=== PATIENT | male | born 1945 | race Caucasian/White ===

== ENCOUNTER → 2018-03-19 07:30 | Outpatient (CLI) | payer OTHER, SELFPAY ==
[2018-03-19 08:28] LABS: Hemoglobin A1C% w Est Avg Glu 6.3 % (4.0-6.0)
[2018-03-19 08:45] LABS: Alanine Aminotransferase 51 IU/L (21-72); Albumin 4.3 g/dL (3.5-5.0); Albumin Globulin Ratio 1.2 (1.0-2.8); Alkaline Phosphatase 65 U/L (38-126); Aspartate Aminotransferase 40 IU/L (17-59); Bilirubin Total 0.8 mg/dL (0.2-1.3); Blood Urea Nitrogen 15 mg/dL (9-20); Calcium 9.2 mg/dL (8.4-10.2); Carbon Dioxide 28 mmol/L (22-32); Chloride 103 mmol/L (98-107); Cholesterol 139 mg/dL (140-199); Estimated Glomerular Filt Rate 46.1 mL/min (>60); Globulin 3.5 g/dL (1.7-4.1); Glucose 142 mg/dL (80-110); HDL Cholesterol 31 mg/dL (40-60); HEMOLYSIS < 15 (0-50); LDL Cholesterol Calculated 72 mg/dL (<100); Potassium 3.6 mmol/L (3.4-5.1); Sodium 143 mmol/L (137-145); Total Protein 7.8 g/dL (6.3-8.2); Triglycerides 179 mg/dL (35-150)
[2018-03-19 08:59] LABS: Free T4, Direct Thyroxine 1.22 ng/dL (0.78-2.19)
== END ==
PROVIDERS: Family Provider Family Medicine; PCP Family Medicine; Visit Provider Family Medicine
DX: E11.9 Type 2 diabetes mellitus without complications (principal); I10 Essential (primary) hypertension; E78.2 Mixed hyperlipidemia; Z79.4 Long term (current) use of insulin
CPT/HCPCS: 36415; 80053; 80061; 83036; 84439; 84443; 84481

== ENCOUNTER → 2018-05-29 09:15 | Outpatient (CLI) | payer OTHER, SELFPAY ==
[2018-05-29 09:22] LABS: Bacteria Urine None Seen; RBC Urine None Seen (0-5/HPF); WBC Urine None Seen (0-5/HPF)
[2018-05-29 09:48] LABS: Add Manual Diff / Slide Review NO; Basophils Percent Auto 0.7 % (0-2); Eosinophils Percent Auto 4.4 % (2-4); Hematocrit 41.4 % (41-53); Hemoglobin 14.7 g/dL (13.5-17.5); Lymphocytes Percent Auto 32.5 % (25-40); Mean Corpuscular HGB Conc 35.4 % (30-36); Mean Corpuscular Hemoglobin 30.6 PG (26-34); Mean Corpuscular Volume 86.2 fL (80-100); Monocytes Percent Auto 8.4 % (3-14); Neutrophils Absolute Auto 4600 /uL (3000-5900); Platelet Count 197 X10^3/uL (150-400); Red Cell Distribution Width 13.7 % (11.6-14.8); White Blood Cell Count 8.5 X10^3/uL (4.5-11.0)
[2018-05-29 10:04] LABS: Alanine Aminotransferase 52 IU/L (21-72); Albumin 4.4 g/dL (3.5-5.0); Albumin Globulin Ratio 1.3 (1.0-2.8); Alkaline Phosphatase 55 U/L (38-126); Aspartate Aminotransferase 50 IU/L (17-59); BUN Creatinine Ratio 9.3 (6-22); Blood Urea Nitrogen 13 mg/dL (9-20); Calcium 9.3 mg/dL (8.4-10.2); Carbon Dioxide 27 mmol/L (22-32); Chloride 103 mmol/L (98-107); Cholesterol 127 mg/dL (140-199); Globulin 3.4 g/dL (1.7-4.1); Glucose 138 mg/dL (80-110); HDL Cholesterol 36 mg/dL (40-60); HEMOLYSIS 20 (0-50); LDL Cholesterol Calculated 59 mg/dL (<100); Potassium 3.6 mmol/L (3.4-5.1); Sodium 141 mmol/L (137-145); Total Protein 7.8 g/dL (6.3-8.2); Triglycerides 161 mg/dL (35-150)
[2018-05-29 10:25] LABS: Appearance Urine UA CLEAR; Bilirubin Urine UA NEGATIVE (NEGATIVE); Color Urine UA YELLOW; Glucose Urine UA NEGATIVE (Normal); Ketones Urine UA NEGATIVE (NEGATIVE); Leukocyte Esterase Urine UA NEGATIVE (NEGATIVE); Nitrite Urine UA Negative (Negative); Occult Blood Urine UA NEGATIVE (Negative); Protein Urine UA NEGATIVE (Negative); Specific Gravity Urine UA 1.015 (1.000-1.035); Urobilinogen Urine UA 0.2 E.U./dL (0.2); pH Urine UA 6.5 (4.5-8.0)
[2018-05-29 10:37] LABS: Culture Indicated Urine Cult Not Indicated
[2018-05-29 10:50] LABS: Thyroid Stimulating Hormone 3.92 uIU/mL (0.47-4.68)
== END ==
PROVIDERS: PCP Family Medicine; Visit Provider Family Medicine
DX: E11.9 Type 2 diabetes mellitus without complications (principal); Z51.81 Encounter for therapeutic drug level monitoring; Z79.4 Long term (current) use of insulin; Z12.5 Encounter for screening for malignant neoplasm of prostate
CPT/HCPCS: 36415; 80053; 80061; 81001; 84153; 84443; 85025

== ENCOUNTER → 2018-06-21 07:42 | Outpatient (CLI) | payer OTHER, SELFPAY ==
[2018-06-21 09:07] LABS: Alanine Aminotransferase 60 IU/L (21-72); Albumin 4.2 g/dL (3.5-5.0); Albumin Globulin Ratio 1.2 (1.0-2.8); Alkaline Phosphatase 57 U/L (38-126); Aspartate Aminotransferase 67 IU/L (17-59); BUN Creatinine Ratio 11.3 (6-22); Bilirubin Total 0.8 mg/dL (0.2-1.3); Blood Urea Nitrogen 17 mg/dL (9-20); Calcium 9.8 mg/dL (8.4-10.2); Carbon Dioxide 28 mmol/L (22-32); Chloride 104 mmol/L (98-107); Estimated Glomerular Filt Rate 46.1 mL/min (>60); Globulin 3.5 g/dL (1.7-4.1); Glucose 148 mg/dL (80-110); HEMOLYSIS < 15 (0-50); Potassium 3.7 mmol/L (3.4-5.1); Sodium 143 mmol/L (137-145); Total Protein 7.7 g/dL (6.3-8.2)
[2018-06-21 09:21] LABS: Hemoglobin A1C% w Est Avg Glu 6.4 % (4.0-6.0)
== END ==
PROVIDERS: PCP Family Medicine; Visit Provider Family Medicine
DX: E11.9 Type 2 diabetes mellitus without complications (principal); E78.5 Hyperlipidemia, unspecified; I10 Essential (primary) hypertension; Z79.4 Long term (current) use of insulin
CPT/HCPCS: 80053; 83036

== ENCOUNTER 2018-10-08 11:44 | Day surgery (SDC) | payer OTHER, SELFPAY ==
--- NOTE | 2018-10-08 | PATH_ITS ---
[facility] Accession Number: [id number] . 01 Material submitted: . PART A: DUODENAL BIOPSY PART B: ANTRAL BIOPSY PART C: GE JUNCTION BIOPSY . 02 Diagnosis: A. Duodenum, Biopsy: Duodenal mucosa with no diagnostic abnormality. Negative for active inflammation, features of sprue, dysplasia or malignancy. . B. Designated Antrum, Biopsy: Gastric body-type mucosa with no diagnostic abnormality. No evidence of Helicobacter organisms on H/E stain. Negative for intestinal metaplasia, dysplasia or malignancy. . C. Gastroesophageal Junction, Biopsy: Columnar mucosa with no diagnostic abnormality. Negative for specialized intestinal metaplasia, dysplasia or malignancy. [facility]/10/09/2018 . 02 Electronically signed: . Marcel Douglas MD, PhD, Pathologist NPI- [id number] . 01 Gross description: . Received three formalin-filled containers, each labeled with the patient's name: . A. In a container labeled duodenal, the specimen consists of a 0.2 cm portion of tissue, entirely submitted in cassette A. B. In a container labeled antral, the specimen consists of a 0.2 cm portion of tissue, entirely submitted in cassette B. C. In a container labeled GE junction, the specimen consists of two 0.2-0.3 cm portions of tissue, entirely submitted in cassette C. ([id number]) /FRR . 02 Pathologist provided ICD-10: R10.13 . 02 CPT . 302847, 714236, 304880 Performed at: 01 [facility] [address] [address] [place] [id number] MD Bradly Paul MD Phone: [phone] Performed at: [address] [facility] [place] [address] [place] [id number] MD Angelica Loya MD Phone: [phone]
[2018-10-08 12:15] VITALS: BP 158/78; PULSE 60; RESP 15; TEMP 36.3; O2SAT 96
--- NOTE | 2018-10-08 14:10 | PM.PREOP ---
Pre-operative Note Interval Note Pre-op Check: Yes History & Physical Reviewed by Physician Changes: No
[2018-10-08] MEDS: LIDOCAINE 4% SOLN 50 ML 20 ML TOP (14:14)
[2018-10-08] MEDS: TETRACAINE/BENZOCAINE/BUTAMBEN (CETACAINE) BOTTLE 1 SPRAY TOP (14:15)
[2018-10-08] MEDS: fentaNYL 250 MCG/5 ML INJ IV (14:23)
[2018-10-08] MEDS: MIDAZOLAM 5 MG/5 ML VIAL IV (14:23)
--- NOTE | 2018-10-08 14:26 | PM.OP.1 ---
Operative Date/Time/Diagnoses Date of procedure: 10/08/18 Time of procedure: 14:26 Post-op diagnosis: same Procedure & Clinicians Procedure: Esophagogastroduodenoscopy with biopsies Same procedure as scheduled: Yes Indications: Recurrent persistent gastroesophageal reflux disease with last endoscopy in 2000 Surgeon: Lily Diamond Click Yes if Unassisted: Yes Anesthesia Type: Sedation (Versed 4 mg; fentanyl 150 mcg) Operative Notes Findings: 1. Normal duodenum 2. Very mild antral gastritis with a couple of hyperplastic Eladia glands but no true pathology 3. GE junction at 40 cm from the incisors. Tiny sliding hiatal hernia component 4. Incompetent lower esophageal sphincter. 5. Very irregular appearing Z-line with no evidence, visually, of Hall's changes 6. Normal posterior oropharynx. Estimated Blood Loss (mL): 1 Procedure in detail: After obtaining informed consent, the patient was brought to the GI suite and placed in the left lateral decubitus position on the examination table. After placement of appropriate monitors, the patient was given incremental doses of Versed and Fentanyl until an appropriate level of sedation was achieved. A time out was held per SCOAP protocol. A bite block was gently placed between the patient's teeth. The endoscope was lubricated and then passed into the patient's posterior oropharynx. The esophagus was cannulated under direct vision and the scope was passed to the second portion of the duodenum without difficulty. The scope was then withdrawn with careful examination of all areas of the upper GI tract and mucosa. In the stomach, the instrument was retroflexed and the GE junction examined. The scope was straightened and the procedure continued with examination of the remainder of the upper GI tract. Findings are noted above. Air was aspirated from the stomach and the endoscope gently removed from the esophagus. The patient was allowed to awaken from sedation without difficulty and taken to the post-anesthesia care unit in good condition. Total sedation time 12 min Complications: none Condition: stable Disposition: PACU
[2018-10-08 14:30] VITALS: BP 127/75; PULSE 61; RESP 15; TEMP 36.6; O2SAT 90
[2018-10-08 14:35] VITALS: BP 119/76; PULSE 63; RESP 15; O2SAT 91
[2018-10-08 14:40] VITALS: PULSE 63; RESP 17; O2SAT 92
[2018-10-08 14:51] VITALS: BP 127/74; PULSE 67; RESP 16; TEMP 36.2; O2SAT 94
== END 2018-10-08 15:06 | disposition home or self-care (01) ==
PROVIDERS: PCP Family Medicine; Visit Provider Surgery
PROC: 0DJ08ZZ Inspection of Upper Intestinal Tract, Via Natural or Artificial Opening Endoscopic (ICD-10-PCS; CPT 43235; principal; 2018-10-08 13:30)
DX: K29.70 Gastritis, unspecified, without bleeding (principal); K44.9 Diaphragmatic hernia without obstruction or gangrene; N18.9 Chronic kidney disease, unspecified; E11.9 Type 2 diabetes mellitus without complications; E78.5 Hyperlipidemia, unspecified; I10 Essential (primary) hypertension; E03.9 Hypothyroidism, unspecified; G62.9 Polyneuropathy, unspecified; Z86.73 Personal history of transient ischemic attack (TIA), and cerebral infarction without residual deficits
CPT/HCPCS: 43239; 99152; J2250; J3010

== ENCOUNTER → 2019-01-02 09:25 | Outpatient (CLI) | payer OTHER, SELFPAY ==
[2019-01-02 09:50] LABS: Add Manual Diff / Slide Review NO; Basophils Absolute Auto 100 /uL (0-100); Eosinophils Absolute Auto 300 /uL (0-450); Eosinophils Percent Auto 3.7 % (2-4); Hematocrit 42.4 % (41-53); Hemoglobin 14.8 g/dL (13.5-17.5); Lymphocytes Absolute Auto 2700 /uL (1100-4500); Lymphocytes Percent Auto 29.6 % (25-40); Mean Corpuscular HGB Conc 34.9 % (30-36); Mean Corpuscular Hemoglobin 30.3 PG (26-34); Mean Corpuscular Volume 86.9 fL (80-100); Monocytes Absolute Auto 900 /uL (0-900); Monocytes Percent Auto 9.5 % (3-14); Neutrophils Absolute Auto 5200 /uL (1500-7000); Neutrophils Percent Auto 56.2 % (50-75); Platelet Count 205 X10^3/uL (150-400); Red Blood Cell Count 4.88 X10^6/uL (4.5-5.9); Red Cell Distribution Width 13.6 % (11.6-14.8); White Blood Cell Count 9.2 X10^3/uL (4.5-11.0)
[2019-01-02 10:05] LABS: Alanine Aminotransferase 77 IU/L (21-72); Albumin 4.5 g/dL (3.5-5.0); Albumin Globulin Ratio 1.2 (1.0-2.8); Alkaline Phosphatase 58 U/L (38-126); Aspartate Aminotransferase 81 IU/L (17-59); Bilirubin Total 0.8 mg/dL (0.2-1.3); Blood Urea Nitrogen 17 mg/dL (9-20); Calcium 9.9 mg/dL (8.4-10.2); Carbon Dioxide 28 mmol/L (22-32); Chloride 101 mmol/L (98-107); Cholesterol 132 mg/dL (140-199); Estimated Glomerular Filt Rate 39.8 mL/min (>60); Globulin 3.7 g/dL (1.7-4.1); Glucose 168 mg/dL (80-110); HDL Cholesterol 28 mg/dL (40-60); HEMOLYSIS 15 (0-50); LDL Cholesterol Calculated 36 mg/dL (<100); Potassium 3.2 mmol/L (3.4-5.1); Sodium 140 mmol/L (137-145); Total Protein 8.2 g/dL (6.3-8.2); Triglycerides 338 mg/dL (35-150)
[2019-01-02 11:24] LABS: Thyroid Stimulating Hormone 3.65 uIU/mL (0.47-4.68)
== END ==
PROVIDERS: PCP Family Medicine; Visit Provider Family Medicine
DX: E03.9 Hypothyroidism, unspecified (principal); E11.9 Type 2 diabetes mellitus without complications; E78.5 Hyperlipidemia, unspecified; I10 Essential (primary) hypertension; Z51.81 Encounter for therapeutic drug level monitoring; Z79.4 Long term (current) use of insulin
CPT/HCPCS: 36415; 80053; 80061; 84443; 85025

== ENCOUNTER → 2019-01-27 17:10 | Outpatient (CLI) | payer OTHER, SELFPAY ==
[2019-01-27 18:27] LABS: Hemoglobin A1C% w Est Avg Glu 7.3 % (4.0-6.0)
[2019-01-27 18:43] LABS: Alanine Aminotransferase 53 IU/L (21-72); Albumin 4.4 g/dL (3.5-5.0); Albumin Globulin Ratio 1.3 (1.0-2.8); Alkaline Phosphatase 62 U/L (38-126); Aspartate Aminotransferase 50 IU/L (17-59); BUN Creatinine Ratio 8.5 (6-22); Blood Urea Nitrogen 11 mg/dL (9-20); Calcium 8.9 mg/dL (8.4-10.2); Carbon Dioxide 25 mmol/L (22-32); Chloride 104 mmol/L (98-107); Estimated Glomerular Filt Rate 54.3 mL/min (>60); Globulin 3.5 g/dL (1.7-4.1); Glucose 163 mg/dL (80-110); HEMOLYSIS 16 (0-50); Potassium 3.6 mmol/L (3.4-5.1); Sodium 140 mmol/L (137-145); Total Protein 7.9 g/dL (6.3-8.2)
== END ==
PROVIDERS: PCP Family Medicine; Visit Provider Family Medicine
DX: E11.9 Type 2 diabetes mellitus without complications (principal); I10 Essential (primary) hypertension; Z79.4 Long term (current) use of insulin
CPT/HCPCS: 36415; 80053; 83036

== ENCOUNTER → 2019-04-09 09:22 | Outpatient (CLI) | payer OTHER, SELFPAY ==
[2019-04-09 11:07] LABS: Hemoglobin A1C% w Est Avg Glu 6.7 % (4.0-6.0)
== END ==
PROVIDERS: PCP Family Medicine; Visit Provider Family Medicine
DX: E11.9 Type 2 diabetes mellitus without complications (principal); Z79.4 Long term (current) use of insulin
CPT/HCPCS: 36415; 83036

== ENCOUNTER → 2019-07-21 14:50 | Outpatient (CLI) | payer OTHER, SELFPAY ==
--- NOTE | 2019-07-21 | DI.US.S_ITS ---
PROCEDURE: US RENAL COMPLETE INDICATIONS: Chronic kidney disease, unspecified TECHNIQUE: Real-time scanning was performed of the kidneys and bladder, with image documentation. COMPARISON: None. FINDINGS: Kidneys: Kidneys are normal in size. Right kidney measures 10.5 cm long; left kidney measures 10.8 cm long. Right renal cortical thickness is 1.0 cm; left renal cortical thickness is 1.0 cm. Renal cortical echotexture is normal. 8mm nonobstructing inferior pole left renal calcification Bladder: Pre-void bladder volume is 21 mL. Post-void residual is 2 mL. Pre-void images demonstrate no intraluminal masses or stones. On pre-void images, bilateral ureteral jets are noted with color Doppler interrogation. (Of note, ureteral jets may not be detectable in up to 25% of cases due to insufficient differences in specific gravity between ureteral and bladder urine). Miscellaneous: No free pelvic fluid. IMPRESSION: 1. 8mm nonobstructing left renal calcification. Dictated by: Shilo Horton [facility] Interpreted: Mariah Diallo MD on 07/21/2019 at 16:16 Approved by: Mariah Diallo MD, PhD on 07/21/2019 at 16:19
== END ==
PROVIDERS: Family Provider Family Medicine; PCP Family Medicine; Visit Provider Student in an Organized Health Care Education/Training Program
DX: N18.9 Chronic kidney disease, unspecified (principal); N20.0 Calculus of kidney
CPT/HCPCS: 76770

== ENCOUNTER → 2019-09-26 11:26 | Outpatient (CLI) | payer OTHER, SELFPAY ==
[2019-09-26 12:19] LABS: Add Manual Diff / Slide Review NO; Basophils Absolute Auto 100 /uL (0-100); Basophils Percent Auto 0.8 % (0-2); Eosinophils Absolute Auto 400 /uL (0-450); Eosinophils Percent Auto 5.2 % (2-4); Hematocrit 42.5 % (41-53); Hemoglobin 14.9 g/dL (13.5-17.5); Lymphocytes Absolute Auto 2800 /uL (1100-4500); Lymphocytes Percent Auto 35.1 % (25-40); Mean Corpuscular HGB Conc 35.1 % (30-36); Mean Corpuscular Hemoglobin 30.4 PG (26-34); Mean Corpuscular Volume 86.5 fL (80-100); Monocytes Absolute Auto 700 /uL (0-900); Monocytes Percent Auto 8.3 % (3-14); Neutrophils Absolute Auto 4000 /uL (1500-7000); Neutrophils Percent Auto 50.6 % (50-75); Platelet Count 199 X10^3/uL (150-400); Red Blood Cell Count 4.92 X10^6/uL (4.5-5.9); Red Cell Distribution Width 13.8 % (11.6-14.8)
[2019-09-26 12:29] LABS: Hemoglobin A1C% w Est Avg Glu 10.3 % (4.0-6.0)
[2019-09-26 13:47] LABS: Alanine Aminotransferase 51 IU/L (<50); Albumin 4.3 g/dL (3.5-5.0); Albumin Globulin Ratio 1.3 (1.0-2.8); Alkaline Phosphatase 72 U/L (38-126); Aspartate Aminotransferase 66 IU/L (17-59); Bilirubin Total 1.4 mg/dL (0.2-1.3); Blood Urea Nitrogen 19 mg/dL (9-20); Carbon Dioxide 28 mmol/L (22-32); Chloride 99 mmol/L (98-107); Cholesterol 138 mg/dL (140-199); Estimated Glomerular Filt Rate 34.9 mL/min (>60); Globulin 3.2 g/dL (1.7-4.1); Glucose 219 mg/dL (80-110); HDL Cholesterol 29 mg/dL (40-60); HEMOLYSIS < 15 (0-50); LDL Cholesterol Calculated 74 mg/dL (<100); Potassium 4.1 mmol/L (3.4-5.1); Sodium 138 mmol/L (137-145); Total Protein 7.5 g/dL (6.3-8.2); Triglycerides 176 mg/dL (35-150)
[2019-09-26 14:16] LABS: Thyroid Stimulating Hormone 6.61 uIU/mL (0.47-4.68)
== END ==
PROVIDERS: PCP Family Medicine; Visit Provider Family Medicine
DX: E11.9 Type 2 diabetes mellitus without complications (principal); I10 Essential (primary) hypertension; N18.9 Chronic kidney disease, unspecified; Z79.4 Long term (current) use of insulin
CPT/HCPCS: 36415; 80053; 80061; 83036; 84443; 85025

== ENCOUNTER → 2019-12-23 11:03 | Outpatient (CLI) | payer OTHER, SELFPAY ==
[2019-12-23 12:14] LABS: Hemoglobin A1C% w Est Avg Glu 10.6 % (4.0-6.0)
[2019-12-23 12:29] LABS: BUN Creatinine Ratio 8.9 (6-22); Blood Urea Nitrogen 16 mg/dL (9-20); Calcium 12.6 mg/dL (8.4-10.2); Carbon Dioxide 28 mmol/L (22-32); Chloride 100 mmol/L (98-107); Estimated Glomerular Filt Rate 37.2 mL/min (>60); Glucose 197 mg/dL (80-110); HEMOLYSIS < 15 (0-50); Potassium 4.2 mmol/L (3.4-5.1); Sodium 140 mmol/L (137-145)
[2019-12-23 12:35] LABS: Microalbumin Urine Random 4.3 mg/dL (0-1.6)
[2019-12-23 12:40] LABS: Vitamin D 25 Hydroxy (D3) 36.5 ng/mL (30.0-100.0)
[2019-12-23 12:46] LABS: Free T3, Triiodothyronine Free 3.22 pg/mL (2.77-5.27)
== END ==
PROVIDERS: PCP Student in an Organized Health Care Education/Training Program; Referring Provider Student in an Organized Health Care Education/Training Program; Visit Provider Student in an Organized Health Care Education/Training Program
DX: E03.9 Hypothyroidism, unspecified (principal); E11.9 Type 2 diabetes mellitus without complications; I10 Essential (primary) hypertension; N18.9 Chronic kidney disease, unspecified; Z79.4 Long term (current) use of insulin
CPT/HCPCS: 36415; 80048; 82043; 82306; 82570; 83036; 84439; 84443; 84481

== ENCOUNTER → 2020-03-17 12:10 | Outpatient (CLI) | payer OTHER, SELFPAY ==
[2020-03-17 13:30] LABS: Hematocrit 41.7 % (41-53); Hemoglobin 14.8 g/dL (13.5-17.5); Mean Corpuscular HGB Conc 35.4 % (30-36); Mean Corpuscular Hemoglobin 30.8 PG (26-34); Mean Corpuscular Volume 87.1 fL (80-100); Platelet Count 207 X10^3/uL (150-400); Red Blood Cell Count 4.79 X10^6/uL (4.5-5.9); Red Cell Distribution Width 13.8 % (11.6-14.8); White Blood Cell Count 9.6 X10^3/uL (4.5-11.0)
[2020-03-17 13:40] LABS: Creatinine Urine Random 205.3 mg/dL
[2020-03-17 13:42] LABS: BUN Creatinine Ratio 9.1 (6-22); Blood Urea Nitrogen 17 mg/dL (9-20); Calcium 9.8 mg/dL (8.4-10.2); Carbon Dioxide 27 mmol/L (22-32); Chloride 105 mmol/L (98-107); Estimated Glomerular Filt Rate 35.8 mL/min (>60); Glucose 61 mg/dL (80-110); HEMOLYSIS < 15 (0-50); Potassium 3.7 mmol/L (3.4-5.1); Sodium 141 mmol/L (137-145)
[2020-03-17 13:45] LABS: Microalbumi Creatinin Ratio Ur 24.3 ug/mg CR (<30)
[2020-03-17 14:34] LABS: Free T4, Direct Thyroxine 1.01 ng/dL (0.78-2.19)
[2020-03-18 07:08] LABS: Parathyroid Hormone Int 53 pg/mL (15-65)
== END ==
PROVIDERS: PCP Student in an Organized Health Care Education/Training Program; Referring Provider Student in an Organized Health Care Education/Training Program; Visit Provider Student in an Organized Health Care Education/Training Program
DX: E03.9 Hypothyroidism, unspecified (principal); E11.9 Type 2 diabetes mellitus without complications; E83.52 Hypercalcemia; N18.9 Chronic kidney disease, unspecified; N25.0 Renal osteodystrophy; Z79.4 Long term (current) use of insulin
CPT/HCPCS: 36415; 80048; 82043; 82570; 83036; 83970; 84439; 84443; 85027

== ENCOUNTER → 2020-06-22 12:36 | Outpatient (CLI) | payer OTHER, SELFPAY ==
[2020-06-22 13:27] LABS: Hematocrit 42.8 % (41-53); Hemoglobin 14.9 g/dL (13.5-17.5); Mean Corpuscular HGB Conc 34.8 % (30-36); Mean Corpuscular Volume 86.2 fL (80-100); Platelet Count 194 X10^3/uL (150-400); Red Blood Cell Count 4.97 X10^6/uL (4.5-5.9); White Blood Cell Count 7.4 X10^3/uL (4.5-11.0)
[2020-06-22 13:51] LABS: Hemoglobin A1C% w Est Avg Glu 7.3 % (4.0-6.0)
[2020-06-22 14:03] LABS: BUN Creatinine Ratio 9.1 (6-22); Blood Urea Nitrogen 17 mg/dL (9-20); Estimated Glomerular Filt Rate 35.8 mL/min (>60)
[2020-06-22 16:01] LABS: Free T3, Triiodothyronine Free 3.19 pg/mL (2.77-5.27); Free T4, Direct Thyroxine 1.42 ng/dL (0.78-2.19)
[2020-06-22 16:15] LABS: Thyroid Stimulating Hormone 3.79 uIU/mL (0.47-4.68)
== END ==
PROVIDERS: PCP Student in an Organized Health Care Education/Training Program; Referring Provider Student in an Organized Health Care Education/Training Program; Visit Provider Student in an Organized Health Care Education/Training Program
DX: E11.9 Type 2 diabetes mellitus without complications (principal); Z79.4 Long term (current) use of insulin; E03.9 Hypothyroidism, unspecified; I10 Essential (primary) hypertension; N18.9 Chronic kidney disease, unspecified
CPT/HCPCS: 36415; 82565; 83036; 84439; 84443; 84481; 84520; 85027

== ENCOUNTER → 2020-09-14 12:10 | Outpatient (CLI) | payer OTHER, SELFPAY ==
[2020-09-14 13:04] LABS: Blood Urea Nitrogen 18 mg/dL (9-20); Estimated Glomerular Filt Rate 37.1 mL/min (>60)
== END ==
PROVIDERS: PCP Student in an Organized Health Care Education/Training Program; Referring Provider Student in an Organized Health Care Education/Training Program; Visit Provider Student in an Organized Health Care Education/Training Program
DX: E11.9 Type 2 diabetes mellitus without complications (principal); N18.9 Chronic kidney disease, unspecified; Z79.4 Long term (current) use of insulin
CPT/HCPCS: 36415; 82565; 83036; 84520

== ENCOUNTER → 2020-11-04 12:22 | Outpatient (CLI) | payer OTHER, SELFPAY ==
[2020-11-04 12:50] LABS: COVID19 -Nasal RAPID Negative (Negative)
== END ==
PROVIDERS: PCP Student in an Organized Health Care Education/Training Program; Visit Provider Physician Assistant
DX: J98.8 Other specified respiratory disorders (principal); R05 Cough
CPT/HCPCS: 87635

== ENCOUNTER → 2020-12-10 11:09 | Outpatient (CLI) | payer OTHER, SELFPAY ==
[2020-12-10 13:14] LABS: BUN Creatinine Ratio 8.6 (6-22); Blood Urea Nitrogen 15 mg/dL (9-20); Estimated Glomerular Filt Rate 38.3 mL/min (>60)
== END ==
PROVIDERS: PCP Student in an Organized Health Care Education/Training Program; Referring Provider Student in an Organized Health Care Education/Training Program; Visit Provider Student in an Organized Health Care Education/Training Program
DX: E11.9 Type 2 diabetes mellitus without complications (principal); N18.9 Chronic kidney disease, unspecified; Z79.4 Long term (current) use of insulin
CPT/HCPCS: 36415; 82565; 83036; 84520

== ENCOUNTER → 2022-07-26 13:41 | Outpatient (CLI) | payer OTHER, SELFPAY ==
--- NOTE | 2022-07-26 13:44 | DI.US.S_ITS ---
PROCEDURE: US RENAL COMPLETE INDICATIONS: Reassess chronic kidney disease TECHNIQUE: Real-time scanning was performed of the kidneys and bladder, with image documentation. COMPARISON: [facility], US, US RENAL COMPLETE, 07/21/2019, 15:20. FINDINGS: Kidneys: Kidneys are normal in size. Right kidney measures 10.1 cm long; left kidney measures 10.7 cm long. Right renal cortical thickness is 1.2 cm; left renal cortical thickness is 1.8 cm. Renal cortical echotexture is normal. 1 x 0.8 cm shadowing stone is seen in lower pole of left kidney. No hydronephrosis or right-sided nephrolithiasis . No suspicious solid mass lesions. Bladder: Pre-void bladder volume is 30.6 mL. Patient did not void during the study. Pre-void images demonstrate heterogeneous bladder wall. Diffuse bladder wall thickening is seen measures between 6-7.9 mm in thickness. On pre-void images, no ureteral jets are noted with color Doppler interrogation. (Of note, ureteral jets may not be detectable in up to 25% of cases due to insufficient differences in specific gravity between ureteral and bladder urine). Enlarged prostate gland is seen measures 6.8 x 6.8 x 5.2 cm in size with heterogeneous parenchymal echotexture. 1.4 x 1.2 x 1.4 cm hypoechoic solid lesion is seen in right posterior aspect of prostate gland. 0.9 x 0.7 x 0.8 cm hypoechoic lesion is noted in anterior portion of right prostate. No internal vascularity is seen. Miscellaneous: No free pelvic fluid. IMPRESSION: 1. Nonobstructing stone in lower pole of left kidney. No hydronephrosis . 2. Partially distended urinary bladder with questionable diffuse bladder wall thickening, no definite discrete bladder wall mass is seen. 3. Enlarged prostate gland with heterogeneous parenchymal echotexture and suggestion of 2 hypointense lesion involving right prostate gland as above. Malignant process cannot be excluded. Urological correlation is recommended. Dictated by: Gary Porras M.D. on 07/26/2022 at 16:02 Approved by: Gary Porras M.D. on 07/26/2022 at 16:06
== END ==
PROVIDERS: Referring Provider Student in an Organized Health Care Education/Training Program; Visit Provider Student in an Organized Health Care Education/Training Program
DX: N18.31 Chronic kidney disease, stage 3a (principal); N20.0 Calculus of kidney; N40.0 Benign prostatic hyperplasia without lower urinary tract symptoms; N32.89 Other specified disorders of bladder
CPT/HCPCS: 76770

== ENCOUNTER → 2022-09-06 09:02 | Outpatient (CLI) | payer OTHER, SELFPAY ==
[2022-09-06 10:06] LABS: Hemoglobin A1C% w Est Avg Glu 7.3 % (4.0-6.0)
[2022-09-06 10:39] LABS: Prostate Specific Antigen 4.06 ng/mL (0.10-4.00)
[2022-09-06 10:41] LABS: Microalbumi Creatinin Ratio Ur 24.4 ug/mg CR (<30); Microalbumin Urine Random 4.2 mg/dL (0-1.6)
== END ==
PROVIDERS: PCP Student in an Organized Health Care Education/Training Program; Referring Provider Student in an Organized Health Care Education/Training Program; Visit Provider Student in an Organized Health Care Education/Training Program
DX: E11.9 Type 2 diabetes mellitus without complications (principal); Z79.4 Long term (current) use of insulin; N40.2 Nodular prostate without lower urinary tract symptoms; N18.31 Chronic kidney disease, stage 3a
CPT/HCPCS: 36415; 82043; 82570; 83036; 84153

== ENCOUNTER → 2022-10-02 13:39 | Outpatient (CLI) | payer OTHER, SELFPAY ==
[2022-10-02 14:37] LABS: BUN Creatinine Ratio 5.8 (6-22); Blood Urea Nitrogen 11 mg/dL (9-20); Calcium 8.7 mg/dL (8.4-10.2); Carbon Dioxide 26 mmol/L (22-32); Chloride 101 mmol/L (98-107); Estimated Glomerular Filt Rate 36 mL/min (>60); Glucose 122 mg/dL (80-110); HEMOLYSIS < 15 (0-50); Potassium 3.6 mmol/L (3.4-5.1); Sodium 137 mmol/L (137-145)
== END ==
PROVIDERS: PCP Student in an Organized Health Care Education/Training Program; Referring Provider Urology; Visit Provider Urology
DX: N18.9 Chronic kidney disease, unspecified (principal); N40.0 Benign prostatic hyperplasia without lower urinary tract symptoms; N20.0 Calculus of kidney; R31.21 Asymptomatic microscopic hematuria; R97.20 Elevated prostate specific antigen [PSA]; R93.89 Abnormal findings on diagnostic imaging of other specified body structures; Z77.22 Contact with and (suspected) exposure to environmental tobacco smoke (acute) (chronic)
CPT/HCPCS: 36415; 51798; 80048; 81002; 99214

== ENCOUNTER → 2022-11-10 14:33 | Outpatient (CLI) | payer OTHER, SELFPAY ==
--- NOTE | 2022-11-10 | DI.MRI.S_ITS ---
PROCEDURE: MR PELIS WO/W CON INDICATIONS: Elevated prostate specific antigen [PSA] TECHNIQUE: Coronal HASTE, axial T1 FSE with fat saturation, 3-plane nonbreath-hold T2 FSE. After the administration of contrast, dynamic axial, delayed axial and coronal VIBE or 2-D FLASH with fat saturation through the pelvis. Optional diffusion weighted imaging and ADC may be performed. COMPARISON: None. FINDINGS: Image quality: Diffusion weighted and dynamic contrast enhanced images are diagnostic. Prostate: Gland size is 7.8 x 6.6 x 6.2 cm; ellipsoid gland volume is 166 mL. No significant foci of intrinsic T1 hyperintensity to suggest hemorrhage. Multiple BPH nodules. Lesion size(s): Lesion 1: 0.7 x 0.4 cm, (/15) Lesion location(s) (sector): Lesion 1: Left mid gland transitional zone Lesion description: Lesion 1: Oval T2 weighted imaging (T2WI) morphology score: Lesion 1: 3 Diffusion weighted imaging (DWI) morphology score: Lesion 1: 4 Dynamic contrast enhancement (DCE): Lesion 1: Present Lesion PI-RADS score: Lesion 1: PI-RADS 3 Genitourinary system: Bladder has a trabeculated appearance. Distal ureters are non distended. Bowel and peritoneum: No pathologic free pelvic fluid. Inferior colon and small bowel loops are normal in caliber. Diverticulosis. Normal appendix. Nodes and vessels: No pelvic or inguinal adenopathy by size criteria. Iliac vessels are normal in caliber. Soft tissues: No inguinal hernias. Bones: Marrow demonstrates normal overall signal, without lesions to suggest metastases. IMPRESSION: 1. Marked prostatomegaly. Numerous BPH nodules. 2. Left mid gland transitional zone observation measuring 0.5 cm. PI-RADS 3. Favor BPH nodule. 3. No enlarged lymph nodes. Dictated by: Jeremiah Neumann M.D. on 11/10/2022 at 17:25 Approved by: Jeremiah Neumann M.D. on 11/10/2022 at 17:35
== END ==
PROVIDERS: PCP Student in an Organized Health Care Education/Training Program; Referring Provider Urology; Visit Provider Urology
DX: N40.2 Nodular prostate without lower urinary tract symptoms (principal); R97.20 Elevated prostate specific antigen [PSA]
CPT/HCPCS: 72197; A9579

== ENCOUNTER → 2022-11-28 12:01 | Outpatient (CLI) | payer OTHER, SELFPAY ==
[2022-11-28 12:57] LABS: Estimated Glomerular Filt Rate 39 mL/min (>60)
--- NOTE | 2022-11-28 13:28 | DI.CT.S_ITS ---
PROCEDURE: CT ABDOMEN PELVIS WO/W CON INDICATIONS: Microscopic hematuria, kidney stone TECHNIQUE: Optional 5 mm thick noncontrast images acquired from the diaphragm to the symphysis pubis. After the administration of intravenous contrast, 5 mm thick images acquired from the diaphragm to the symphysis pubis after a 10-minute delay. 2 mm thick coronal and sagittal reformats were then performed of the kidneys and ureters. For radiation dose reduction, the following was used: automated exposure control, adjustment of mA and/or kV according to patient size. COMPARISON: None. FINDINGS: Image quality: Excellent. Lung bases: Lung bases are clear. Heart size is normal. Urinary system: Both kidneys are normal in size, without hydronephrosis on pre-contrast images. There are 2 stones in close proximity to each other in a single posterior left middle pole calyx, the larger of which measures 9 x 8 mm. It has a Hounsfield measurement of 1221. No perinephric fat stranding. There is normal bilateral renal enhancement. Renal calyces appear normal in morphology when filled with contrast. Opacified portions of both ureters demonstrate normal caliber. Marked enlargement of the prostate which significantly indents on the base of the bladder. There is mild diffuse bladder wall thickening consistent with bladder outlet obstruction. No calcified bladder stones. Other solid organs: Liver is normal in size and enhancement mild diffuse hepatic steatosis. Gallbladder contains multiple calcified gallstones. No gallbladder wall thickening . Biliary system is non dilated. Pancreas enhances normally. Spleen is normal in size and enhancement. No adrenal nodules. Peritoneum and bowel: Bowel loops demonstrate normal wall thickness and caliber. At least moderate diffuse sigmoid diverticulosis without evidence of diverticulitis. No free fluid or air. Nodes and vessels: No retroperitoneal or mesenteric adenopathy by size criteria. Aorta and inferior vena cava are normal in size. Abdominal wall: No ventral hernias. Pelvis: No pathologic free pelvic fluid. No inguinal hernias or adenopathy. Bones: No suspicious bony lesions. No vertebral body compression fractures. IMPRESSION: 1. There are 2 nonobstructing stones in the middle pole of the left kidney, the larger of which measures 9 x 8 mm, and has a Hounsfield measurement of 1221. 2. Marked enlargement of the prostate. 3. Bladder wall thickening suggests a degree of bladder outlet obstruction. Dictated by: Cornell Carreno M.D. on 11/28/2022 at 16:26 Approved by: Cornell Carreno M.D. on 11/28/2022 at 16:31
== END ==
PROVIDERS: PCP Student in an Organized Health Care Education/Training Program; Referring Provider Specialist; Visit Provider Student in an Organized Health Care Education/Training Program
DX: R31.29 Other microscopic hematuria (principal); N20.0 Calculus of kidney; N40.0 Benign prostatic hyperplasia without lower urinary tract symptoms; K76.0 Fatty (change of) liver, not elsewhere classified; K80.20 Calculus of gallbladder without cholecystitis without obstruction; K57.30 Diverticulosis of large intestine without perforation or abscess without bleeding
CPT/HCPCS: 36415; 74178; 82565; Q9967

== ENCOUNTER → 2022-12-04 13:52 | Outpatient (CLI) | payer OTHER, SELFPAY ==
--- NOTE | 2022-12-04 13:54 | DI.RAD.S_ITS ---
PROCEDURE: XR KUB INDICATIONS: Left kidney stone TECHNIQUE: One view of the abdomen acquired. COMPARISON: [facility], CT, CT ABDOMEN PELVIS WO/W CON, 11/28/2022, 13:35. FINDINGS: Surgical changes and devices: None. Bowel: Bowel gas pattern is normal. Soft tissues: 8 mm calcification projects over the lower pole left kidney. Fecal debris present in the right colon. Bones: No suspicious bony lesions. IMPRESSION: 8 mm left renal calculus Approved by: Trell Ace M.D. on 12/04/2022 at 16:22
== END ==
PROVIDERS: PCP Student in an Organized Health Care Education/Training Program; Referring Provider Urology; Visit Provider Urology
DX: N20.0 Calculus of kidney (principal); R97.20 Elevated prostate specific antigen [PSA]; R93.89 Abnormal findings on diagnostic imaging of other specified body structures; N40.0 Benign prostatic hyperplasia without lower urinary tract symptoms; N39.41 Urge incontinence; Z77.22 Contact with and (suspected) exposure to environmental tobacco smoke (acute) (chronic)
CPT/HCPCS: 74018; 99214

== ENCOUNTER 2022-12-26 11:15 | Day surgery (SDC) | payer OTHER, SELFPAY ==
[2022-12-22 11:31] VITALS: BMI 31.9
[2022-12-26] VITALS (14 sets, daily range): BP systolic 179–208; BP diastolic 79–100; PULSE 63–81; RESP 8–17; TEMP 36.4–36.8; O2SAT 92–96; BMI 31.9
[2022-12-26] MEDS: LACTATED RINGERS 1,000 ML 42 ML IV (11:54)
--- NOTE | 2022-12-26 12:04 | PM.PREOP ---
Pre-operative Note COVID-19 COVID-19 status: Not tested Criteria for continued procedure: Delay expected to result in less-positive ultimate med/surg outcome and Non-surgical alternatives not available or appropriate per current SOC Interval Note History & Physical reviewed/Exam performed by Physician: Yes Changes to H&P: No
[2022-12-26] MEDS: CEFAZOLIN 2 GM/100 ML PREMIX 100 ML IV (12:35)
--- NOTE | 2022-12-26 12:46 | SUR.OPER ---
Lithotomy on padded OR bed, head on pillow, arms padded and tucked . Legs secured in leg holders specific for ESWL bed
[2022-12-26] MEDS: IOPAMIDOL 30 ML VIAL 10 ML INTRAURETH (13:04)
--- NOTE | 2022-12-26 13:33 | P.OP_ITS ---
Procedure & Clinicians Procedure: Left extracorporeal shockwave lithotripsy, cystoscopy and left stent placement, left retrograde pyelogram Same procedure as scheduled: Yes Indications: This 77-year-old male who presented with complaint of hematuria was found to maldonado ve a left renal calculus during the workup for this. He presents this time for treatment of this left ureteral calculus.. Surgeon: Krishna Clinton Click Yes if Unassisted: Yes Anesthesia Type: General Operative Notes Findings: Findings: At cystoscopy urethral meatus was normal urethra was normal. The prostate exhibits moderate approaching severe obstructive character with elevated bladder neck and or median lobe. The right ureteral orifices in normal position with clear efflux. The bladder is otherwise unremarkable. Add attempt at placing the stent on the left the patient was noted to have significant ?J hooking? of the distal ureter. This necessitated retrograde pyelogram which revealed the J hooking. And facilitated passage of a wire and Ashland catheter up it into the collecting system. There were no other abnormalities noted. The stone was noted to be in the left mid kidney consistent with the findings of his KUB and CT scan. There were no filling defects or other abnormalities. The stone received a total of 2000 shocks at level 7 and appeared to fragment well. A 7 Portuguese multilink stent was left in good position in the left collecting system with no string. Closure Type: not applicable Specimen(s): none sent Prosthetic devices, grafts, tissues, transplants, or devices: Seven Portuguese by multi length stent no string Blood products transfused: none Procedure in detail: Procedure in detail: After informed consent was obtained, the patient was identified and brought to the operating room where he was placed in supine position on the Lithotripter. He then had anesthesia induced to maintain. Ensuring an adequate level of anesthesia patient was then transitioned to the lithotomy position. Once the lithotomy position he was prepped, draped, prepared for Transurethral procedure. After prepping draping, time-out and ensuring an adequate level of anesthesia 22 Portuguese cystoscope was passed through the urethra prostate and into the bladder under direct vision cystoscopy was performed. The left ureteral orifice was identified and attempt to pass a hybrid wire met with difficulty. This was then assisted by a Ashland catheter and again difficulty was met so the Cantu catheter was left in place with a wire backed out and contrast instilled and visualized via fluoroscopy. With the findings and had glidewire was then employed passed up it into the collecting system the distal ureter appeared to ?straightened? and the Cantu catheter was passed up into the collecting system where the contrast was irrigated out with saline and aspiration. The hybrid wire was then passed through the Ashland catheter the Cantu catheter was basket out and the stent passed over the wire positioned in the renal pelvis under fluoroscopic visualization of the bladder under direct vision. The grasping forceps was then inserted and the stent grasped with a nylon heart is removed. The bladder was drained scope was removed and the patient went on to extracorporeal shockwave lithotripsy. The stone was targeted via the imaging system and shockwave delivered vaginally reaching level 7 for a total of 2000 shocks. There was periodic reimaging and re localization to ensure maximal energy delivery to the stone with 2000 shocks delivered the shockwave head was rotated out fluoroscopy performed revealing the stone to be well fragmented. At this point the patient was awakened having tolerated the procedure well he was transferred to a gurney and taken to the postanesthesia care unit having tolerated the procedure well. There were no complications patient will be transferred to home to follow up my office in approximately 2 weeks. He will strain his urine and save any fragments. Complications: none Post-operative Condition: stable Disposition: PACU Plan for aftercare: Patient is to be discharged to home straining his urine saving any fragments he will return to my office in approximately 2 weeks with a KUB for follow-up.
[2022-12-26] MEDS: METOPROLOL TARTRATE 5 MG/5 ML INJ IV (13:41)
[2022-12-26] MEDS: AMLODIPINE 5 MG TABLET 10 MG PO (13:58)
--- NOTE | 2022-12-26 14:00 | SUR.PHASEI ---
Patient denied chest pain, nausea, shortness of breath, headache.
[2022-12-26] MEDS: ONDANSETRON 4 MG/2 ML INJ IV (14:19)
--- NOTE | 2022-12-26 14:27 | SUR.PHASEII ---
Patient stood at bedside to void and vomited 200mls. Zofran provided.
[2022-12-26] MEDS: LABETALOL 20 MG/4 ML SYRINGE 10 MG IV (14:42)
--- NOTE | 2022-12-26 14:52 | SUR.PHASEII ---
Urine strained x2, no fragments noted.
--- NOTE | 2022-12-26 15:15 | SUR.PHASEII ---
Dr. Angeles evaluated patient. Patient to take his po isosorbide, then may discharge home per MD.
[2022-12-26] MEDS: ISOSORBIDE MONONITRATE 20 MG TABLET PO (15:25)
--- NOTE | 2022-12-26 15:41 | SUR.PHASEII ---
1525 BP discussed with pt and Dr. Angeles prior to discharge, pt amb ind with steady gait denies nausea/headache/dizziness or other sx, states I feel fine
== END 2022-12-26 15:36 | disposition home or self-care (01) ==
PROVIDERS: PCP Student in an Organized Health Care Education/Training Program; Referring Provider Urology; Visit Provider Urology
PROC: (CPT 50590; principal; 2022-12-26 12:30)
PROC: (CPT 50590; 2022-12-26 12:30)
DX: N20.0 Calculus of kidney (principal); R97.20 Elevated prostate specific antigen [PSA]; N40.0 Benign prostatic hyperplasia without lower urinary tract symptoms; N39.41 Urge incontinence
CPT/HCPCS: 50590; 52332; J0330; J0690; J2405; J2704; J3010; Q9967

== ENCOUNTER → 2023-01-04 12:47 | Outpatient (CLI) | payer OTHER, SELFPAY ==
--- NOTE | 2023-01-04 12:50 | DI.RAD.S_ITS ---
PROCEDURE: XR KUB INDICATIONS: renal stones TECHNIQUE: One view of the abdomen acquired. COMPARISON: [facility], CR, XR KUB, 12/04/2022, 13:57. FINDINGS: Surgical changes and devices: There is a left ureteral stent in expected position. Multiple left renal calculi are present. The dominant stone in the inferior pole is no longer visualized. No definitive right renal stone. Bowel: Bowel gas pattern is normal. Soft tissues: No suspicious abdominal calcifications. Visualized solid organ contours appear normal in size. Bones: No suspicious bony lesions. IMPRESSION: 1. Multiple left renal calculi. The dominant stone in the inferior pole of the left kidney is no longer present. There is a left ureteral stent. Dictated by: Meng Luo M.D. on 01/04/2023 at 17:18 Approved by: Meng Luo M.D. on 01/04/2023 at 17:20
== END ==
PROVIDERS: PCP Student in an Organized Health Care Education/Training Program; Referring Provider Urology; Visit Provider Urology
DX: N20.0 Calculus of kidney (principal); Z96.0 Presence of urogenital implants
CPT/HCPCS: 74018

== ENCOUNTER → 2023-01-08 15:23 | Outpatient (CLI) | payer OTHER, SELFPAY | PROVIDERS: PCP Student in an Organized Health Care Education/Training Program; Visit Provider Urology | DX: N39.0 Urinary tract infection, site not specified (principal); N20.0 Calculus of kidney; N40.0 Benign prostatic hyperplasia without lower urinary tract symptoms; Z96.0 Presence of urogenital implants | CPT/HCPCS: 81002; 87086 ==

== ENCOUNTER → 2023-01-24 08:34 | Outpatient (CLI) | payer OTHER, SELFPAY ==
--- NOTE | 2023-01-24 08:36 | DI.RAD.S_ITS ---
PROCEDURE: XR KUB INDICATIONS: Kidney stone TECHNIQUE: One view of the abdomen acquired. COMPARISON: [facility], CT, CT ABDOMEN PELVIS WO/W CON, 11/28/2022, 13:35. [facility], CR, XR KUB, 01/04/2023, 12:50. [facility], CR, XR KUB, 12/04/2022, 13:57. FINDINGS: Surgical changes and devices: Stable appearance of a left ureteral stent. Bowel: Bowel gas pattern is normal. Soft tissues: Previously seen left renal calculi appear less prominent, although residual small calculi are suspected. No calculus is seen along the course of the left ureter. Visualized solid organ contours appear normal in size. Bones: No suspicious bony lesions. IMPRESSION: Stable left ureteral stent. Left renal calculi appear less prominent. Approved by: Edwin Gonzalez M.D. on 01/24/2023 at 12:14
== END ==
PROVIDERS: PCP Student in an Organized Health Care Education/Training Program; Referring Provider Urology; Visit Provider Urology
DX: N20.0 Calculus of kidney (principal); Z96.0 Presence of urogenital implants
CPT/HCPCS: 74018

== ENCOUNTER → 2023-02-08 10:35 | Outpatient (CLI) | payer OTHER, SELFPAY ==
--- NOTE | 2023-02-08 10:36 | DI.RAD.S_ITS ---
PROCEDURE: XR KUB INDICATIONS: kidney stones TECHNIQUE: One view of the abdomen acquired. COMPARISON: [facility], CR, XR KUB, 01/24/2023, 8:33. FINDINGS: Surgical changes and devices: Left double-J stent Bowel: Bowel gas pattern is normal. Soft tissues: No suspicious abdominal calcifications. Faint small lower pole left renal stones. Visualized solid organ contours appear normal in size. Bones: No suspicious bony lesions. IMPRESSION: Unchanged course of left ureteral stent. Faint small left lower pole renal stones. Dictated by: Cornell Carreno M.D. on 02/08/2023 at 16:04 Approved by: Cornell Carreno M.D. on 02/08/2023 at 16:05
== END ==
PROVIDERS: PCP Student in an Organized Health Care Education/Training Program; Referring Provider Urology; Visit Provider Urology
DX: N20.0 Calculus of kidney (principal); Z96.0 Presence of urogenital implants
CPT/HCPCS: 74018

== ENCOUNTER → 2023-02-08 13:35 | Outpatient (CLI) | payer OTHER, SELFPAY ==
--- NOTE | 2023-02-08 13:36 | DI.ECHO.S_ITS ---
[facility]+ [facility] +---------+ : : [address] : : : : [id number] : : : : Phone: [phone]+ Echocardiogram Report + + :Name: SURINDER NERI Study Date: 02/08/2023 Height: 67 in : :[facility] ReadingLocation: Weight: 200 lb : : Gender: Male BSA: 2.0 m2 : :: 1945 Age: 77 yrs BP: 183/75 mmHg: :Reason For Study: SYNCOPE : :Ordering Physician: SAM, : :DALILA Performed By: Nayla Arciniega : :Referring: DALILA VARGAS : + + Interpretation Summary Normal sinus rhythm and uncontrolled hypertension. Normal LV size and mild concentric LVH. There is subtle mid-inferoseptal, distal septal and mid-inferior hypokinesis which in the right clinical setting could be due to conduction system disease or small area of ischemia or infarction. Normal wall motion otherwise. EF is 60-65%. Normal chamber sizes. Mild AI; otherwise no significant valvular abnormalities. No prior study available for comparison. Procedure: A two-dimensional transthoracic echocardiogram with color flow and Doppler was performed. The study quality was technically adequate. There is no prior echocardiogram noted for this patient. The patient was in sinus rhythm with heart rates between 58-69 bpm during the exam. Left Ventricle: The left ventricle is normal in size. There is mild concentric left ventricular hypertrophy. The ejection fraction is estimated to be 55-60%. Right Ventricle: The right ventricle is borderline dilated. The right ventricular systolic function is normal. Atria: The left atrial size is normal. Right atrial size is normal. There is no Doppler evidence for an interatrial shunt. Mitral Valve: The mitral valve is normal in structure and function. There is trace mitral regurgitation. Aortic Valve: The aortic valve is trileaflet. There is no aortic valve stenosis. There is mild aortic regurgitation. Tricuspid Valve: The tricuspid valve is normal in structure and function. There is trace tricuspid regurgitation. Pulmonic Valve: The pulmonic valve leaflets are thin and pliable; valve motion is normal. There is mild pulmonic regurgitation. Great Vessels: The aortic root is normal size. The dimensions of the ascending aorta are normal. The IVC is of normal diameter and collapses greater than 50% with a sniff. This suggests a low right atrial pressure of 3 mm Hg. Pericardium/ Pleura There is no pericardial effusion. There is no pleural effusion. MMode/2D Measurements & Calculations LVIDd: 4.4 cm LVOT diam: 2.2 cm LVIDs: 3.0 cm Ao root diam: 3.8 cm FS: 32.5 % asc Aorta Diam: 3.4 cm EPSS: 1.5 cm Ao Arch Diam (Prox Trans): 2.9 cm IVSd: 1.2 cm LVPWd: 1.1 cm LV vincent. diameter/BSA (cm/m^2): 2.2 LV sys. diameter/BSA (cm/m^2): 1.5 LA A2 area: 25.6 cm2 RA long axis: 4.6 cm LA A4 area: 13.9 cm2 RA area: 15.4 cm2 LA length (vol): 4.8 cm RA vol: 44.1 ml LA vol: 63.2 ml RA : 21.8 ml/m2 LA vol index: 31.2 ml/m2 IVC diam: 1.3 cm RVD1 (basal): 4.2 cm RVD2 (mid): 2.9 cm TAPSE: 2.5 cm Doppler Measurements & Calculations Ao V2 max: 138.3 cm/sec LVOT Max Ceasar: 114.8 cm/sec Ao V2 mean: 93.4 cm/sec LV V1 max P.3 mmHg Ao max P.6 mmHg LV V1 VTI: 24.9 cm Ao mean P.9 mmHg SHALOM(I,D): 3.1 cm2 Ao V2 VTI: 30.6 cm SHALOM(V,D): 3.2 cm2 sev ratio: 0.81 SHALOM indexed to BSA (cm^2/m^2): 1.6 AI P1/2t: 590.0 msec AI dec slope: 180.9 cm/sec2 MV E max ceasar: 62.1 cm/sec PA V2 max: 73.1 cm/sec MV A max ceasar: 73.1 cm/sec PA V2 mean: 50.5 cm/sec MV E/A: 0.85 PA mean P.2 mmHg Med Peak E' Ceasar: 4.2 cm/sec PA pr(Accel): 36.2 mmHg E/E' med: 14.9 Lat Peak E' Ceasar: 4.8 cm/sec E/E' lat: 13.0 E/e' average: 14.0 MV dec time: 0.21 sec SVLVOT): 95.9 ml Electronically signed by: Ave Dawson M.D. on [place] Physician:02/09/2023 01:36 AM
== END ==
PROVIDERS: PCP Student in an Organized Health Care Education/Training Program; Referring Provider Student in an Organized Health Care Education/Training Program; Visit Provider Student in an Organized Health Care Education/Training Program
DX: I35.1 Nonrheumatic aortic (valve) insufficiency (principal); I37.1 Nonrheumatic pulmonary valve insufficiency; R55 Syncope and collapse; N20.0 Calculus of kidney; Z96.0 Presence of urogenital implants
CPT/HCPCS: 74018; 93306

== ENCOUNTER → 2023-02-19 12:41 | Outpatient (CLI) | payer OTHER, SELFPAY ==
--- NOTE | 2023-02-19 12:43 | DI.RAD.S_ITS ---
PROCEDURE: XR KUB INDICATIONS: Kidney stone TECHNIQUE: One view of the abdomen acquired. COMPARISON: [facility], , XR KUB, 02/08/2023, 10:46. FINDINGS: Surgical changes and devices: Left ureteral stent is unchanged in position. Bowel: Bowel gas pattern is normal. Soft tissues: Previously seen left inferior pole renal calculi are not well seen. Visualized solid organ contours appear normal in size. Bones: No suspicious bony lesions. IMPRESSION: Nonvisualization of previously seen left renal calculi. CT KUB could be performed for further assessment, if clinically indicated. Dictated by: Stephanie Melgar M.D. on 02/19/2023 at 13:50 Transcribed by: GAMALIEL on 02/19/2023 at 13:51 Approved by: Stephanie Melgar M.D. on 02/19/2023 at 16:44
[2023-02-19 14:27] LABS: Appearance Urine UA CLEAR; Bilirubin Urine UA NEGATIVE (NEGATIVE); Color Urine UA YELLOW; Glucose Urine UA TRACE g/dL (Negative); Ketones Urine UA NEGATIVE (NEGATIVE); Leukocyte Esterase Urine UA TRACE (NEGATIVE); Nitrite Urine UA NEGATIVE (Negative); Occult Blood Urine UA 3+ (Negative); Protein Urine UA 2+ (Negative); Urobilinogen Urine UA 0.2 E.U./dL (0.2); pH Urine UA 6.5 (4.5-8.0)
[2023-02-19 14:35] LABS: BUN Creatinine Ratio 7.9 (6-22); Blood Urea Nitrogen 16 mg/dL (9-20); Calcium 8.9 mg/dL (8.4-10.2); Carbon Dioxide 27 mmol/L (22-32); Chloride 101 mmol/L (98-107); Cholesterol 149 mg/dL (140-199); Estimated Glomerular Filt Rate 33 mL/min (>60); Glucose 289 mg/dL (80-110); HDL Cholesterol 30 mg/dL (40-60); HEMOLYSIS < 15 (0-50); LDL Cholesterol Calculated 84 mg/dL (<100); Potassium 4.1 mmol/L (3.4-5.1); Sodium 138 mmol/L (137-145); Triglycerides 176 mg/dL (35-150)
[2023-02-19 14:53] LABS: Bacteria Urine None Seen; Culture Indicated Urine Cult Not Indicated; RBC Urine >100/HPF (0-5/HPF); Squamous Epithelial Cell Urine 0-1 /HPF (0-5/HPF); WBC Urine 1-5/HPF (0-5/HPF)
[2023-02-20 08:07] LABS: Labcorp Hemoglobin (Hb) A1c 7.5 % (4.8-5.6)
[2023-02-21 07:48] LABS: PSA Free % 40.2 % (.); PSA, Total 4.1 ng/mL (0.0-4.0)
== END ==
PROVIDERS: PCP Student in an Organized Health Care Education/Training Program; Referring Provider Urology; Visit Provider Urology
DX: I10 Essential (primary) hypertension (principal); E11.69 Type 2 diabetes mellitus with other specified complication; E78.5 Hyperlipidemia, unspecified; E11.9 Type 2 diabetes mellitus without complications; Z79.4 Long term (current) use of insulin; R97.20 Elevated prostate specific antigen [PSA]; N18.31 Chronic kidney disease, stage 3a; N39.41 Urge incontinence; R31.21 Asymptomatic microscopic hematuria
CPT/HCPCS: 36415; 74018; 80048; 80061; 81001; 83036; 84153; 84154

== ENCOUNTER → 2023-02-21 13:28 | Outpatient (CLI) | payer OTHER, SELFPAY | PROVIDERS: PCP Student in an Organized Health Care Education/Training Program; Referring Provider Student in an Organized Health Care Education/Training Program; Visit Provider Student in an Organized Health Care Education/Training Program | DX: R55 Syncope and collapse (principal) | CPT/HCPCS: 93246 ==

== ENCOUNTER → 2023-02-23 13:47 | Outpatient (CLI) | payer OTHER, SELFPAY | PROVIDERS: PCP Student in an Organized Health Care Education/Training Program; Visit Provider Urology | DX: N20.0 Calculus of kidney (principal); N39.41 Urge incontinence; R31.21 Asymptomatic microscopic hematuria; Z77.22 Contact with and (suspected) exposure to environmental tobacco smoke (acute) (chronic); Z96.0 Presence of urogenital implants | CPT/HCPCS: 87086; 99213 ==

== ENCOUNTER → 2023-02-27 11:10 | Outpatient (CLI) | payer OTHER, SELFPAY ==
[2023-03-05 16:20] LABS: Hydroxyapatite 100 % (.)
== END ==
PROVIDERS: PCP Student in an Organized Health Care Education/Training Program; Visit Provider Urology
DX: N20.0 Calculus of kidney (principal); N39.41 Urge incontinence
CPT/HCPCS: 52310; 81002; 82365

== ENCOUNTER → 2023-03-07 15:15 | Outpatient (CLI) | payer OTHER, SELFPAY | PROVIDERS: PCP Student in an Organized Health Care Education/Training Program; Visit Provider Urology | DX: N20.0 Calculus of kidney (principal); N39.41 Urge incontinence; N40.0 Benign prostatic hyperplasia without lower urinary tract symptoms; R31.21 Asymptomatic microscopic hematuria; R97.20 Elevated prostate specific antigen [PSA]; R82.81 Pyuria; R30.0 Dysuria; R35.0 Frequency of micturition; N20.9 Urinary calculus, unspecified | CPT/HCPCS: 51798; 81002; 87077; 87086; 87147; 87186; 99214 ==

== ENCOUNTER → 2023-03-28 13:57 | Outpatient (CLI) | payer OTHER, SELFPAY | PROVIDERS: PCP Student in an Organized Health Care Education/Training Program; Visit Provider Urology | DX: N30.01 Acute cystitis with hematuria (principal); N20.0 Calculus of kidney; N40.0 Benign prostatic hyperplasia without lower urinary tract symptoms; N39.41 Urge incontinence; R97.20 Elevated prostate specific antigen [PSA]; Z77.22 Contact with and (suspected) exposure to environmental tobacco smoke (acute) (chronic) | CPT/HCPCS: 81002; 87086; 99214 ==

== ENCOUNTER → 2023-05-10 11:14 | Outpatient (CLI) | payer OTHER, SELFPAY ==
[2023-05-10 13:43] LABS: Blood Urea Nitrogen 16 mg/dL (9-20); Calcium 9.1 mg/dL (8.4-10.2); Carbon Dioxide 28 mmol/L (22-32); Chloride 102 mmol/L (98-107); Estimated Glomerular Filt Rate 34 mL/min (>60); Glucose 117 mg/dL (80-110); HEMOLYSIS < 15 (0-50); Potassium 3.6 mmol/L (3.4-5.1); Sodium 139 mmol/L (137-145)
[2023-05-11 09:17] LABS: x Labcorp Estim. Avg Glu (eAG) 157 mg/dL (.); x Labcorp Hemoglobin A1c 7.1 % (4.8-5.6)
== END ==
PROVIDERS: PCP Pediatrics; Referring Provider Pediatrics; Visit Provider Pediatrics
DX: E03.9 Hypothyroidism, unspecified (principal); E11.69 Type 2 diabetes mellitus with other specified complication; E11.9 Type 2 diabetes mellitus without complications; E78.5 Hyperlipidemia, unspecified; I10 Essential (primary) hypertension; N18.9 Chronic kidney disease, unspecified; Z79.4 Long term (current) use of insulin
CPT/HCPCS: 36415; 80048; 83036; 84443

== ENCOUNTER → 2023-05-24 15:32 | Outpatient (CLI) | payer OTHER, SELFPAY | PROVIDERS: PCP Pediatrics; Visit Provider Urology | DX: N20.0 Calculus of kidney (principal); N39.41 Urge incontinence; R31.21 Asymptomatic microscopic hematuria; N20.9 Urinary calculus, unspecified; N40.0 Benign prostatic hyperplasia without lower urinary tract symptoms; N18.31 Chronic kidney disease, stage 3a; R82.81 Pyuria; R34 Anuria and oliguria; R82.991 Hypocitraturia | CPT/HCPCS: 81002; 87086; 99214 ==

== ENCOUNTER → 2023-10-08 10:34 | Outpatient (CLI) | payer OTHER, SELFPAY ==
[2023-10-08 12:15] LABS: Calcium 9.7 mg/dL (8.4-10.2); Phosphorous 3.1 mg/dL (2.3-3.7); Uric Acid 5.8 mg/dL (3.5-8.5)
[2023-10-08 21:12] LABS: Prostate Specific Antigen 6.69 ng/mL (0.10-4.00)
[2023-10-10 15:57] LABS: PSA, Total 7.1 ng/mL (0.0-4.0)
[2023-10-10 23:14] LABS: Calcium 11.2 mg/dL (8.6-10.2); Parathyroid Hormone, Intact 68 pg/mL (15-65)
== END ==
PROVIDERS: PCP Family Medicine; Referring Provider Urology; Visit Provider Urology
DX: N39.41 Urge incontinence (principal); R31.21 Asymptomatic microscopic hematuria; N20.0 Calculus of kidney; N18.9 Chronic kidney disease, unspecified; N20.9 Urinary calculus, unspecified; R97.20 Elevated prostate specific antigen [PSA]; Z77.22 Contact with and (suspected) exposure to environmental tobacco smoke (acute) (chronic)
CPT/HCPCS: 36415; 82310; 83970; 84100; 84153; 84154; 84550

== ENCOUNTER → 2023-10-24 13:13 | Outpatient (CLI) | payer OTHER, SELFPAY ==
[2023-10-24 13:54] LABS: Add Manual Diff / Slide Review NO; Basophils Absolute Auto 100 /uL (0-100); Eosinophils Absolute Auto 500 /uL (0-450); Eosinophils Percent Auto 5.7 % (2-4); Hematocrit 43.6 % (41-53); Hemoglobin 15.3 g/dL (13.5-17.5); Lymphocytes Absolute Auto 2300 /uL (1100-4500); Lymphocytes Percent Auto 28.5 % (25-40); Mean Corpuscular HGB Conc 35.1 % (30-36); Mean Corpuscular Hemoglobin 30.4 PG (26-34); Mean Corpuscular Volume 86.7 fL (80-100); Monocytes Absolute Auto 700 /uL (0-900); Monocytes Percent Auto 8.6 % (3-14); Neutrophils Absolute Auto 4500 /uL (1500-7000); Neutrophils Percent Auto 56.2 % (50-75); Platelet Count 219 X10^3/uL (150-400); Red Blood Cell Count 5.03 X10^6/uL (4.5-5.9)
[2023-10-24 14:06] LABS: Hemoglobin A1C% w Est Avg Glu 8.2 % (4.0-6.0)
[2023-10-24 14:25] LABS: Alanine Aminotransferase 28 IU/L (<50); Albumin 4.1 g/dL (3.5-5.0); Albumin Globulin Ratio 1.1 (1.0-2.8); Alkaline Phosphatase 83 U/L (38-126); BUN Creatinine Ratio 7.7 (6-22); Bilirubin Total 1.2 mg/dL (0.2-1.3); Blood Urea Nitrogen 14 mg/dL (9-20); Calcium 9.4 mg/dL (8.4-10.2); Carbon Dioxide 26 mmol/L (22-32); Chloride 100 mmol/L (98-107); Estimated Glomerular Filt Rate 38 mL/min (>60); Globulin 3.8 g/dL (1.7-4.1); Glucose 265 mg/dL (80-110); HEMOLYSIS < 15 (0-50); Potassium 3.9 mmol/L (3.4-5.1); Sodium 137 mmol/L (137-145); Total Protein 7.9 g/dL (6.3-8.2)
[2023-10-24 14:39] LABS: Free T4, Direct Thyroxine 1.34 ng/dL (0.78-2.19)
[2023-10-24 14:53] LABS: Thyroid Stimulating Hormone 3.79 uIU/mL (0.47-4.68)
[2023-10-24 16:29] LABS: Creatinine Urine Random 212.6 mg/dL
[2023-10-24 16:36] LABS: Microalbumi Creatinin Ratio Ur 34.3 ug/mg CR (<30); Microalbumin Urine Random 7.3 mg/dL (0-1.6)
[2023-10-25 08:13] LABS: Calcium 9.3 mg/dL (8.6-10.2); Parathyroid Hormone, Intact 89 pg/mL (15-65)
[2023-10-26 15:53] LABS: Aspartate Aminotransferase 34 IU/L (17-59)
== END ==
PROVIDERS: PCP Family Medicine; Referring Provider Urology; Visit Provider Urology
DX: E11.9 Type 2 diabetes mellitus without complications (principal); Z79.4 Long term (current) use of insulin; N40.0 Benign prostatic hyperplasia without lower urinary tract symptoms; N18.9 Chronic kidney disease, unspecified; I10 Essential (primary) hypertension; E11.69 Type 2 diabetes mellitus with other specified complication; E78.5 Hyperlipidemia, unspecified; N20.9 Urinary calculus, unspecified; E21.3 Hyperparathyroidism, unspecified
CPT/HCPCS: 36415; 80053; 82043; 82310; 82570; 83036; 83970; 84439; 84443; 85025

== ENCOUNTER → 2023-12-09 15:03 | Outpatient (CLI) | payer OTHER, SELFPAY ==
--- NOTE | 2023-12-09 15:07 | DI.MRI.S_ITS ---
PROCEDURE: MR PELVIC PROSTATE PROTOCOL INDICATIONS: Elevated PSA TECHNIQUE: Coronal HASTE, axial T1 FSE with fat saturation, 3-plane nonbreath-hold T2 FSE. After the administration of contrast, dynamic axial, delayed axial and coronal VIBE or 2-D FLASH with fat saturation through the pelvis. Diffusion weighted imaging and ADC was performed. COMPARISON: None. FINDINGS: Image quality: Diffusion weighted and dynamic contrast enhanced images are diagnostic. Prostate: Gland size is 7.5 x 6.5 x 6.2 cm; ellipsoid gland volume is 158 mL. Lesion 1: Location: Right posterior transition zone, mid gland, on axial series 5, image 17 and sagittal series 7, image 10. Size: 1.3 x 0.7 cm. T2W signal: Hypointense. Partially capsulated. DWI signal: Markedly hyperintense. ADC signal: Markedly hypointense. Enhancement: Yes. Extracapsular extension: No. No neurovascular involvement. PI-RADS score: 3 Genitourinary system: Bladder wall thickness is normal. Distal ureters are non distended. Bowel and peritoneum: No pathologic free pelvic fluid. Inferior colon and small bowel loops are normal in caliber. Colonic diverticulosis without evidence of diverticulitis. Nodes and vessels: No pelvic or inguinal adenopathy by size criteria. Iliac vessels are normal in caliber. Soft tissues: Small inguinal hernias containing fat. Bones: Marrow demonstrates normal overall signal, without lesions to suggest metastases. IMPRESSION: PI-RADS 3 lesion without extraprostatic extension, as above. No pelvic lymphadenopathy by size criteria. No aggressive osseous abnormality. Dictated by: Carlos Thompson M.D. on 12/10/2023 at 8:42 Approved by: Carlos Thompson M.D. on 12/10/2023 at 8:58
== END ==
PROVIDERS: PCP Family Medicine; Referring Provider Urology; Visit Provider Urology
DX: R97.20 Elevated prostate specific antigen [PSA] (principal); K40.90 Unilateral inguinal hernia, without obstruction or gangrene, not specified as recurrent; N42.9 Disorder of prostate, unspecified; K57.90 Diverticulosis of intestine, part unspecified, without perforation or abscess without bleeding
CPT/HCPCS: 49505; 72197; A9579

== ENCOUNTER → 2024-01-17 15:51 | Outpatient (CLI) | payer OTHER, SELFPAY ==
[2024-01-17 19:18] LABS: Hemoglobin A1C% w Est Avg Glu 7.5 % (4.0-6.0)
[2024-01-17 22:00] LABS: Alanine Aminotransferase 26 IU/L (<50); Albumin 3.9 g/dL (3.5-5.0); Alkaline Phosphatase 91 U/L (38-126); Aspartate Aminotransferase 31 IU/L (17-59); BUN Creatinine Ratio 9.3 (6-22); Bilirubin Total 0.9 mg/dL (0.2-1.3); Blood Urea Nitrogen 17 mg/dL (9-20); Calcium 9.4 mg/dL (8.4-10.2); Carbon Dioxide 22 mmol/L (22-32); Chloride 108 mmol/L (98-107); Estimated Glomerular Filt Rate 38 mL/min (>60); Globulin 3.8 g/dL (1.7-4.1); Glucose 275 mg/dL (80-110); HEMOLYSIS < 15 (0-50); Potassium 3.5 mmol/L (3.4-5.1); Sodium 140 mmol/L (137-145); Total Protein 7.7 g/dL (6.3-8.2)
[2024-01-21 19:07] LABS: Parathyroid Hormone, Intact 93 pg/mL (15-65)
== END ==
PROVIDERS: PCP Family Medicine; Referring Provider Family Medicine; Visit Provider Family Medicine
DX: N18.9 Chronic kidney disease, unspecified (principal); E21.3 Hyperparathyroidism, unspecified; E11.9 Type 2 diabetes mellitus without complications; Z79.4 Long term (current) use of insulin
CPT/HCPCS: 36415; 80053; 82310; 83036; 83970

== ENCOUNTER → 2024-02-04 13:09 | Outpatient (CLI) | payer OTHER, SELFPAY | PROVIDERS: PCP Family Medicine; Visit Provider Urology | DX: R39.9 Unspecified symptoms and signs involving the genitourinary system (principal) | CPT/HCPCS: 87086 ==

== ENCOUNTER → 2024-04-28 14:22 | Outpatient (CLI) | payer OTHER, SELFPAY ==
--- NOTE | 2024-04-28 14:24 | DI.RAD.S_ITS ---
PROCEDURE: XR KUB INDICATIONS: Phosphate stones hyperparathyroidism TECHNIQUE: One view of the abdomen acquired. COMPARISON: [facility], CR, XR KUB, 02/19/2023, 12:47. FINDINGS: Surgical changes and devices: Interval removal of left ureterovesicular stent. Bowel: Bowel gas pattern is normal. Moderate colonic stool. Soft tissues: No suspicious abdominal calcifications. Visualized solid organ contours appear normal in size. Bones: No suspicious bony lesions. IMPRESSION: No definitive calcifications are present overlying the renal shadows expected course of the ureters. Dictated by: Chaparrita Richter M.D. on 04/28/2024 at 17:34 Approved by: Chaparrita Richter M.D. on 04/28/2024 at 17:35
[2024-04-28 16:19] LABS: BUN Creatinine Ratio 10.8 (6-22); Blood Urea Nitrogen 21 mg/dL (9-20); Calcium 9.1 mg/dL (8.4-10.2); Carbon Dioxide 24 mmol/L (22-32); Chloride 106 mmol/L (98-107); Estimated Glomerular Filt Rate 35 mL/min (>60); Glucose 180 mg/dL (80-110); HEMOLYSIS < 15 (0-50); Phosphorous 3.3 mg/dL (2.3-3.7); Potassium 3.9 mmol/L (3.4-5.1); Sodium 140 mmol/L (137-145)
== END ==
PROVIDERS: PCP Family Medicine; Referring Provider Urology; Visit Provider Urology
DX: E21.3 Hyperparathyroidism, unspecified (principal); N20.9 Urinary calculus, unspecified; R97.20 Elevated prostate specific antigen [PSA]
CPT/HCPCS: 36415; 74018; 80048; 84100; 84153; 84154

== ENCOUNTER → 2024-05-06 15:03 | Outpatient (CLI) | payer OTHER, SELFPAY | PROVIDERS: PCP Family Medicine; Referring Provider Urology; Visit Provider Urology | DX: E21.3 Hyperparathyroidism, unspecified (principal) | CPT/HCPCS: 82310; 83970 ==

== ENCOUNTER → 2024-09-08 13:26 | Outpatient (CLI) | payer OTHER, SELFPAY ==
[2024-09-08 14:16] LABS: Alanine Aminotransferase 36 IU/L (<50); Albumin 4.3 g/dL (3.5-5.0); Albumin Globulin Ratio 1.2 (1.0-2.8); Alkaline Phosphatase 79 U/L (38-126); Aspartate Aminotransferase 43 IU/L (17-59); BUN Creatinine Ratio 7.3 (6-22); Bilirubin Total 0.9 mg/dL (0.2-1.3); Blood Urea Nitrogen 15 mg/dL (9-20); Calcium 9.7 mg/dL (8.4-10.2); Carbon Dioxide 26 mmol/L (22-32); Chloride 103 mmol/L (98-107); Estimated Glomerular Filt Rate 33 mL/min (>60); Globulin 3.6 g/dL (1.7-4.1); Glucose 233 mg/dL (80-110); HEMOLYSIS < 15 (0-50); Potassium 3.5 mmol/L (3.4-5.1); Sodium 139 mmol/L (137-145); Total Protein 7.9 g/dL (6.3-8.2)
[2024-09-08 14:32] LABS: Free T4, Direct Thyroxine 1.18 ng/dL (0.78-2.19)
[2024-09-08 14:45] LABS: Prostate Specific Antigen 4.37 ng/mL (0.10-4.00)
[2024-09-08 14:45] LABS: Thyroid Stimulating Hormone 4.39 uIU/mL (0.47-4.68)
== END ==
PROVIDERS: PCP Family Medicine; Referring Provider Urology; Visit Provider Urology
DX: N18.9 Chronic kidney disease, unspecified (principal); E21.3 Hyperparathyroidism, unspecified; E11.9 Type 2 diabetes mellitus without complications; Z79.4 Long term (current) use of insulin; R97.20 Elevated prostate specific antigen [PSA]
CPT/HCPCS: 36415; 80053; 82310; 83036; 83970; 84153; 84439; 84443

== ENCOUNTER → 2024-09-08 13:42 | Outpatient (CLI) | payer OTHER, SELFPAY ==
--- NOTE | 2024-09-08 13:43 | DI.RAD.S_ITS ---
PROCEDURE: XR KUB INDICATIONS: History of phosphate stones TECHNIQUE: One view of the abdomen acquired. COMPARISON: [facility], CR, XR KUB, 04/28/2024, 14:32. FINDINGS: Surgical changes and devices: None. Bowel: Bowel gas pattern is normal. Soft tissues: No suspicious abdominal calcifications. Visualized solid organ contours appear normal in size. Bones: No suspicious bony lesions. IMPRESSION: No acute abnormality. Approved by: Trell Ace M.D. on 09/08/2024 at 19:35
== END ==
PROVIDERS: PCP Family Medicine; Referring Provider Urology; Visit Provider Urology
DX: N18.9 Chronic kidney disease, unspecified (principal); E21.3 Hyperparathyroidism, unspecified; E11.9 Type 2 diabetes mellitus without complications; Z79.4 Long term (current) use of insulin; R97.20 Elevated prostate specific antigen [PSA]; Z87.442 Personal history of urinary calculi
CPT/HCPCS: 36415; 74018; 80053; 82310; 83036; 83970; 84153; 84439; 84443

== ENCOUNTER 2024-12-15 10:27 | Emergency (ER) | payer OTHER, SELFPAY ==
[2024-12-15] VITALS (17 sets, daily range): BP systolic 150–201; BP diastolic 70–85; PULSE 55–69; RESP 16; TEMP 36.6; O2SAT 94–97; BMI 31.3
--- NOTE | 2024-12-15 10:44 | DI.RAD.S_ITS ---
PROCEDURE: XR CHEST 1V INDICATIONS: chest pain TECHNIQUE: One view of the chest was acquired. COMPARISON: None. FINDINGS: Surgical changes and devices: None. Lungs and pleura: Lungs are clear. No pleural effusions or pneumothorax. Mediastinum: Mediastinal contours appear normal. Heart size is normal. Bones and chest wall: No suspicious bony lesions. Overlying soft tissues appear unremarkable. IMPRESSION: No acute cardiopulmonary pathology. Dictated by: Gary Porras M.D. on 12/15/2024 at 11:32 Approved by: Gary Porras M.D. on 12/15/2024 at 11:32
--- NOTE | 2024-12-15 10:44 | EKG_ITS ---
[facility] [address] [place] [address] Test Date: 2024-12-15 Pat Name: Anatoliy Declan Department: [facility] Room: Gender: Male [place] Welter: PETER : 1945 Requested By: Order Number: [id number] Reading MD: Pako Mishra Measurements Intervals [place] Rate: 65 P: 41 LA: 170 QRS: -25 QRSD: 100 T: -27 QT: 418 QTc: 434 Interpretive Statements Normal sinus rhythm Moderate voltage criteria for LVH, may be normal variant ( R in aVL , Baldev product ) Nonspecific T wave abnormality Electronically Signed On 12-15-2024 17:11:27 PST by Pako Mishra
--- NOTE | 2024-12-15 12:02 | PC.NURSE ---
pt called from [facility] without answer 1200. Potentially in BR or cafe. will check in 10 min
--- NOTE | 2024-12-15 12:19 | PC.NURSE ---
called again from waiting area without answer.
--- NOTE | 2024-12-15 12:32 | PC.NURSE ---
Pt called from [employer] @[id number] for the 3rd time. No answer.
--- NOTE | 2024-12-15 13:30 | PC.NURSE ---
pt was finally located and brought to room 8 with steady gait
[2024-12-15 14:10] LABS: Add Manual Diff / Slide Review NO; Basophils Absolute Auto 100 /uL (0-100); Basophils Percent Auto 1.1 % (0-2); Eosinophils Absolute Auto 400 /uL (0-450); Eosinophils Percent Auto 3.8 % (2-4); Hematocrit 44.3 % (41-53); Hemoglobin 15.3 g/dL (13.5-17.5); Lymphocytes Absolute Auto 2700 /uL (1100-4500); Lymphocytes Percent Auto 28.6 % (25-40); Mean Corpuscular HGB Conc 34.6 % (30-36); Mean Corpuscular Hemoglobin 30.6 PG (26-34); Mean Corpuscular Volume 88.4 fL (80-100); Monocytes Absolute Auto 600 /uL (0-900); Monocytes Percent Auto 6.7 % (3-14); Neutrophils Absolute Auto 5600 /uL (1500-7000); Neutrophils Percent Auto 59.8 % (50-75); Platelet Count 229 X10^3/uL (150-400); Red Blood Cell Count 5.02 X10^6/uL (4.5-5.9); Red Cell Distribution Width 13.9 % (11.6-14.8); White Blood Cell Count 9.3 X10^3/uL (4.5-11.0)
[2024-12-15 14:19] LABS: INR 1.1 (0.9-1.3); Prothrombin Time 12.2 SECONDS (9.4-12.5)
[2024-12-15 14:22] LABS: PTT Partial Thromboplastin Tim 29 SECONDS (25.1-36.5)
[2024-12-15 14:25] LABS: Alanine Aminotransferase 35 IU/L (<50); Albumin 4.2 g/dL (3.5-5.0); Albumin Globulin Ratio 1.1 (1.0-2.8); Alkaline Phosphatase 74 U/L (38-126); Aspartate Aminotransferase 50 IU/L (17-59); BUN Creatinine Ratio 9.7 (6-22); Bilirubin Total 1.2 mg/dL (0.2-1.3); Blood Urea Nitrogen 24 mg/dL (9-20); Calcium 10.1 mg/dL (8.4-10.2); Carbon Dioxide 22 mmol/L (22-32); Chloride 106 mmol/L (98-107); Creatine Kinase 87 U/L (55-170); Estimated Glomerular Filt Rate 26 mL/min (>60); Globulin 3.8 g/dL (1.7-4.1); Glucose 247 mg/dL (80-110); HEMOLYSIS 40 (0-50); Lipase 70 U/L (23-300); Magnesium 1.8 mg/dL (1.6-2.3); Potassium 3.9 mmol/L (3.4-5.1); Sodium 138 mmol/L (137-145)
[2024-12-15 14:36] LABS: NT-proBNP (BNP-Adult 18+) 253 pg/mL (<450); Troponin I < 0.012 ng/mL (0.01-0.034)
--- NOTE | 2024-12-15 15:06 | ED_ITS ---
HPI - Dizziness General Chief Complaint: Dizziness Stated Complaint: dizziness Time Seen by Provider: 12/15/24 15:02 Source: patient, RN notes reviewed and old records reviewed Mode of arrival: Ambulatory Limitations: no limitations History of Present Illness HPI Narrative: 79-year-old male comes in with complaint of feeling dizzy sort of confused and off for the past week. States it has not really got any better. He went to call his physician to set up an appointment and was told he would not be around for a couple weeks. States no fevers no cold cough or congestion, no headaches, no vision change. No chest pain, no shortness of breath. No abdominal back or flank pain. Does not eat he has had some new urinary frequency, urgency and incontinence over the past several weeks particularly the past week or so. Does note he had diarrhea and some nausea at the beginning of the week but no vomiting. He states that has all resolved. Patient states he has been able to ambulate. States he has been sort of dizzy but denies any vertigo symptoms. No syncope. He states he walks like an old man and sort of flaps around when he was walking but states that is been going on for a long time. States he is on 3 medications for his heart, cholesterol medication, no anticoagulants. States had prior ureteral stent, no known drug allergies. No tobacco, alcohol or recreational drugs. Follows with Dr. Michel for primary care. Was following with Nephrology for chronic kidney disease but [facility] Related Data Home Medications Medication Instructions Recorded Confirmed Co Q-10 12/26/22 09/30/24 flaxseed oil 1,000 mg capsule 1,000 mg PO DAILY 06/16/24 09/30/24 Previous Rx's Medication Instructions Recorded epinephrine 0.3 mg/0.3 mL 0.3 mg (0.3 mL) IM ONCE #2 ea 08/01/19 injection, auto-injector (EpiPen 2-Marco) omeprazole 20 mg capsule,delayed 40 mg (2 x 20 mg) PO DAILY #90 caps 08/22/22 release Diabetic Shoes & Insoles #4 ea 06/15/23 Alcohol Prep Pads #250 ea 07/23/23 Accuchek Honey lancets - Softclix #250 ea 09/10/23 Glucose: Test Strips #250 ea 09/10/23 amlodipine 10 mg tablet 10 mg PO Q DAY #90 tabs 11/13/23 atorvastatin 20 mg tablet (Lipitor) 20 mg PO HS #90 tabs 11/13/23 insulin aspart U-100 100 unit/mL 10 unit (0.1 mL) SUBCUT .Qmeal #30 11/13/23 subcutaneous solution mL isosorbide mononitrate 60 mg 60 mg PO DAILY #90 tabs 11/13/23 tablet,extended release 24 hr loratadine 10 mg tablet 10 mg PO DAILY #90 tabs 11/13/23 alfuzosin 10 mg tablet,extended 10 mg PO QDAY #90 tabs 12/05/23 release 24 hr fluticasone propionate 50 1 spray intranasal QDAY #16 grams 04/16/24 mcg/actuation nasal spray,suspension (Flonase Allergy Relief) atenolol 100 mg tablet 100 mg PO Q DAY #90 tabs 04/30/24 insulin syringe-needle U-100 1 mL #100 ea 05/22/24 29 gauge x 1/2 insulin glargine 100 unit/mL 35 unit (0.35 mL) SUBCUT BID #3 05/26/24 subcutaneous solution (Lantus vials U-100 Insulin) levothyroxine 125 mcg tablet 125 mcg PO DAILY #90 tabs 09/30/24 Allergies Allergy/AdvReac Type Severity Reaction Status Date / Time ciprofloxacin Allergy Unknown Verified 09/30/24 15:10 Penicillins Allergy Unknown Verified 09/30/24 15:10 sulfamethoxazole Allergy Unknown Verified 09/30/24 15:10 [From Bactrim] trimethoprim [From Bactrim] Allergy Unknown Verified 09/30/24 15:10 DOG DANDER Allergy Mild Uncoded 09/30/24 15:10 Review of Systems Review of Systems ROS Unobtainable: All systems reviewed & are unremarkable except as noted in HPI and below Patient History Medical History History of hyperparathyroidism Benign prostatic hyperplasia with lower urinary tract symptoms Basal cell carcinoma (BCC) of [place] Rising PSA level Hyperparathyroidism Hypocitraturia Decreased urine volume Phosphate calculi Left renal stone Elevated PSA Secondhand smoke exposure Asymptomatic microscopic hematuria Abnormal ultrasound of prostate Kidney stone History of kidney stones Hearing loss (~07/2017) Neuropathy (Unknown) Osteopenia (08/2016) Hypothyroidism (Unknown) GERD (gastroesophageal reflux disease) (Unknown) Diabetes (Unknown) CKD (chronic kidney disease) (Unknown) Stroke (Unknown) BPH (benign prostatic hyperplasia) (Unknown) Hypertension (Unknown) Colon polyps (Unknown) Surgical History History of esophagogastroduodenoscopy (EGD) (09/2018) History of tonsillectomy Family History Father Cancer Mother Cancer Social History marital status: number of children: 3 household members: spouse occupational status: other Previous occupational history: retired Smoking Status: Never smoker second hand exposure: No alcohol intake: current substance use type: does not use caffeine: Yes Type(s) of exercise: none Smoking Status: Never smoker alcohol intake frequency: holidays/special occasions only Exam Narrative Exam Narrative: GEN: well nourished, well appearing elderly male, alert and oriented x 3, patient appears to be in mild distress. HEENT: Atraumatic, pupils are equal round reactive to light, extraocular movements are intact, nares are clear, there is no conjunctival pallor. Throat is clear without any exudates, erythema, tonsillar enlargement or uvular deviation HEART: Regular rate and rhythm without murmur, clicks, rubs. No carotid bruits, pulses are equal in upper and lower extremities LUNGS:Lungs clear to auscultation, no wheezes, rales, crackles, chest moves symmetrically ABD:bowel sounds normal, soft, non-tender, no guarding, rebound, rigidity, no masses noted, no hepatosplenomegaly :No CVA tenderness, MSCL: Non-tender, no muscle atrophy, muscles strength 5/5 upper and lower extremities, full range of motion, normal gait NEURO:CN 2-12 intact, sensation normal. Initial Vital Signs Initial Vital Signs: Vital Signs Temperature 97.8 F 12/15/24 10:40 Pulse Rate 62 12/15/24 10:40 Respiratory Rate 16 12/15/24 10:40 Blood Pressure 183/84 H 12/15/24 10:40 Pulse Oximetry 95 12/15/24 10:40 Oxygen Delivery Method Room Air 12/15/24 10:40 Course Orders Ordered: ED Orders 12/15/24 10:44 XR chest 1V Stat EKG-12 Lead Stat 12/15/24 13:55 Complete Blood Count AUTO DIFF Stat Comprehensive Metabolic Panel Stat Lipase Stat Magnesium Stat NT-proBNP (BNP-Adult 18+) Stat PTT Partial Thromboplastin Yonathan Stat Prothrombin Time INR Stat Troponin & CK Cardiac Panel Stat 12/15/24 15:20 UA Complete [Urinalysis and Microscopic] Stat 12/15/24 16:48 CT head/brain wo con Stat Vital Signs Vital signs: Vital Signs - 8 hr 12/15/24 10:40 12/15/24 13:44 12/15/24 13:45 Temperature 97.8 F Pulse Rate 62 64 60 Respiratory Rate 16 Blood Pressure 183/84 H Pulse Oximetry 95 95 95 Oxygen Delivery Method Room Air 12/15/24 13:45 12/15/24 13:55 12/15/24 13:55 Temperature Pulse Rate 63 Respiratory Rate Blood Pressure 168/77 H 162/75 H Pulse Oximetry 95 Oxygen Delivery Method 12/15/24 14:00 12/15/24 14:00 12/15/24 14:30 Temperature Pulse Rate 69 63 Respiratory Rate Blood Pressure 182/83 H Pulse Oximetry 95 Oxygen Delivery Method 12/15/24 14:31 12/15/24 14:31 12/15/24 14:51 Temperature Pulse Rate 63 67 Respiratory Rate Blood Pressure 156/73 H Pulse Oximetry 95 Oxygen Delivery Method 12/15/24 14:51 12/15/24 14:58 12/15/24 14:58 Temperature Pulse Rate 59 L Respiratory Rate Blood Pressure 201/85 H 160/77 H Pulse Oximetry 97 Oxygen Delivery Method 12/15/24 15:00 12/15/24 15:00 12/15/24 15:30 Temperature Pulse Rate 57 L 59 L Respiratory Rate Blood Pressure 156/73 H Pulse Oximetry 95 94 Oxygen Delivery Method 12/15/24 15:30 12/15/24 16:00 12/15/24 16:01 Temperature Pulse Rate 60 59 L Respiratory Rate Blood Pressure 164/70 H Pulse Oximetry 96 97 Oxygen Delivery Method 12/15/24 16:01 12/15/24 16:20 12/15/24 16:20 Temperature Pulse Rate 59 L Respiratory Rate Blood Pressure 174/77 H 163/78 H Pulse Oximetry 95 Oxygen Delivery Method 12/15/24 16:30 12/15/24 16:30 12/15/24 17:00 Temperature Pulse Rate 55 L 61 Respiratory Rate Blood Pressure 159/75 H Pulse Oximetry 94 96 Oxygen Delivery Method 12/15/24 17:30 Temperature Pulse Rate 57 L Respiratory Rate Blood Pressure 150/77 H Pulse Oximetry 94 Oxygen Delivery Method MDM - Dizziness Lab Data 12/15/24 13:55 12/15/24 13:55 Labs: Lab Results 12/15/24 12/15/24 Range/Units 13:55 15:20 WBC 9.3 (4.5-11.0) X10^3/uL RBC 5.02 (4.5-5.9) X10^6/uL Hgb 15.3 (13.5-17.5) g/dL Hct 44.3 (41-53) % MCV 88.4 (80-100) fL MCH 30.6 (26-34) PG MCHC 34.6 (30-36) % RDW 13.9 (11.6-14.8) % Plt Count 229 (150-400) X10^3/uL Neut % (Auto) 59.8 (50-75) % Lymph % (Auto) 28.6 (25-40) % [place] % (Auto) 6.7 (3-14) % Eos % (Auto) 3.8 (2-4) % Baso % (Auto) 1.1 (0-2) % Neut # (Auto) 5600 (4152-4333) /uL Lymph # (Auto) 2700 (3838-1401) /uL [place] # (Auto) 600 (0-900) /uL Eos # (Auto) 400 (0-450) /uL Baso # (Auto) 100 (0-100) /uL PT 12.2 (9.4-12.5) SECONDS INR 1.1 (0.9-1.3) APTT 29 (25.1-36.5) SECONDS Sodium 138 (137-145) mmol/L Potassium 3.9 (3.4-5.1) mmol/L Chloride 106 (98-107) mmol/L Carbon Dioxide 22 (22-32) mmol/L BUN 24 H (9-20) mg/dL Creatinine 2.47 H (0.66-1.25) mg/dL Estimated GFR 26 L (>60) mL/min BUN/Creatinine Ratio 9.7 (6-22) Glucose 247 H (80-110) mg/dL Calcium 10.1 (8.4-10.2) mg/dL Magnesium 1.8 (1.6-2.3) mg/dL Total Bilirubin 1.2 (0.2-1.3) mg/dL AST 50 (17-59) IU/L ALT 35 (<50) IU/L Alkaline Phosphatase 74 (38-126) U/L Total Creatine Kinase 87 (55-170) U/L Troponin I < 0.012 (0.01-0.034) ng/mL NT-Pro-B Natriuret Pep 253 (<450) pg/mL Total Protein 8.0 (6.3-8.2) g/dL Albumin 4.2 (3.5-5.0) g/dL Globulin 3.8 (1.7-4.1) g/dL Albumin/Globulin Ratio 1.1 (1.0-2.8) Lipase 70 (23-300) U/L Urine Color Yellow Urine Appearance Clear Urine pH 5.0 (4.5-8.0) Ur Specific [place] 1.025 (1.000-1.035) Urine Protein Negative (Negative) Urine Glucose (UA) Trace H (Negative) g/dL Urine Ketones Negative (NEGATIVE) Urine Occult Blood Negative (Negative) Urine Nitrate Negative (Negative) Urine Bilirubin Negative (NEGATIVE) Urine Urobilinogen 0.2 (0.2) E.U./dL Ur Leukocyte Esterase Negative (NEGATIVE) Urine RBC 0-1/hpf D (0-5/HPF) Urine WBC 1-5/hpf (0-5/HPF) Ur Squamous Epith Cells 0-1 /hpf (0-5/HPF) Urine Bacteria Occasional (0-1) (None) Ur Culture Indicated? Cult not indicated Vol Urine Centrifuged 10ml (spun) ECG Data Attestation: I personally reviewed and interpreted this ECG as follows: Prior ECG tracings: available for review Interpretation: Sinus rhythm rate of 65 MI 170 QRS of 100 QTC of 434, no acute ST elevation. Patient has prior from 07/27/2009 which appears similar MDM Narrative Medical decision making narrative: 79-year-old male presents with complaint of dizziness feeling little bit off this week slightly confused. He does not have any acute neurologic changes on exam, his labs shows creatinine is elevated 2.4 but has been chronically elevated in the past last from August of 2024 was at 2.05. He does not have any other acute changes no clear source of infectious changes, head CT was obtained but shows no acute change, he describes dizziness but describes that has been longstanding. Patient is felt appropriate for discharge home Labs show normal CBC, coags are negative, creatinine is 2.47, BUN 24 electrolytes are otherwise appropriate glucose is 247 LFTs are negative troponins less than 0.012 with a BNP of 253. Patient's creatinine is elevated from prior but was 2.05 in August of 2024 with a A1c of 7% Sinus rhythm rate of 65 appears similar to prior from 2008 Chest x-ray shows no acute change UA shows trace glucose, 1 red cell 1-5 white cells 1 squamous occasional bacteria. Head CT shows no acute change Discharge Plan Departure Patient Disposition: Home Clinical Impression: Dizziness Instructions: DI for Dizziness-Nonvertigo Activity Restrictions/Additional Instructions: Follow up for recheck with your physician. Your creatinine was little bit elevated from your prior August, please follow up with your physician to make sure this is not continuing to increase. Please return for new or worsening symptoms, fevers, new confusion or changes in mental status, severe headaches, difficulty with speech, movement, chest pain or shortness of breath, persistent vomiting, new numbness, tingling or weakness or other new or concerning changes. Prescriptions: No Action (DME) Alcohol Prep Pads 0 .Route .MEDSUPPLY Qty: 250 0RF Dose Instruction: As directed Rx Instructions: USe alcohol pad to clean finger up to fours times daily with blood sugar testing. (DME) Glucose: Test Strips 0 .Route .MEDSUPPLY Qty: 250 3RF Dose Instruction: As directed Rx Instructions: Use to test blood sugar up to four times daily. Accucheck Honey glucometer currently being used by the patient. (DME) Accuchek Honey lancets - Softclix Qty: 250 3RF Rx Instructions: Use to check blood sugars 4 times a day alfuzosin 10 mg tablet extended release 24 hr 10 mg PO QDAY Qty: 90 1RF fluticasone propionate [Flonase Allergy Relief] 50 mcg/actuation spray,suspension 1 spray Intranasal QDAY Qty: 16 3RF atenolol 100 mg tablet 100 mg PO Q DAY Qty: 90 0RF (DME) insulin syringe-needle U-100 1 mL 29 gauge x 1/2 syringe See Dose Instructions .ROUTE .MEDSUPPLY Qty: 100 3RF Dose Instruction: As directed Rx Instructions: Use to injection insulin omeprazole 20 mg capsule,delayed release(DR/EC) 40 mg PO DAILY Qty: 90 3RF insulin aspart U-100 100 unit/mL solution 10 unit SUBCUT .Qmeal MDD 100 units Qty: 30 11RF Hold Instructions: Needs labs Rx Instructions: take 10 units prior to before meals atorvastatin [Lipitor] 20 mg tablet 20 mg PO HS Qty: 90 3RF amlodipine 10 mg tablet 10 mg PO Q DAY Qty: 90 3RF isosorbide mononitrate 60 mg tablet extended release 24 hr 60 mg PO DAILY Qty: 90 3RF loratadine 10 mg tablet 10 mg PO DAILY Qty: 90 1RF Lantus U-100 Insulin 100 unit/mL solution 35 unit SUBCUT BID Qty: 3 4RF Hold Instructions: Needs labs levothyroxine 125 mcg tablet 125 mcg PO DAILY Qty: 90 3RF Rx Instructions: increased to 125 mcg epinephrine [EpiPen 2-Marco] 0.3 mg/0.3 mL auto-injector 0.3 mg IM ONCE Qty: 2 0RF Rx Instructions: as a single dose (DME) Diabetic Shoes & Insoles Shoe/Boot See Rx Instructions .Route .MEDSUPPLY Qty: 4 0RF Rx Instructions: As directed Co Q-10 flaxseed oil 1,000 mg capsule 1,000 mg PO DAILY Rx Instructions: administer with a meal Referrals: Vazquez Michel, [Primary Care Provider] - Stand Alone Forms: Patient Portal/API/Survey
[2024-12-15 16:07] LABS: Appearance Urine UA CLEAR; Bilirubin Urine UA NEGATIVE (NEGATIVE); Color Urine UA YELLOW; Glucose Urine UA TRACE g/dL (Negative); Ketones Urine UA NEGATIVE (NEGATIVE); Leukocyte Esterase Urine UA NEGATIVE (NEGATIVE); Nitrite Urine UA NEGATIVE (Negative); Occult Blood Urine UA NEGATIVE (Negative); Protein Urine UA NEGATIVE (Negative); Specific Gravity Urine UA 1.025 (1.000-1.035); Urobilinogen Urine UA 0.2 E.U./dL (0.2)
[2024-12-15 16:38] LABS: Bacteria Urine Occasional (0-1); Culture Indicated Urine Cult Not Indicated; RBC Urine 0-1/HPF (0-5/HPF); Squamous Epithelial Cell Urine 0-1 /HPF (0-5/HPF); Urine Volume 10mL (spun); WBC Urine 1-5/HPF (0-5/HPF)
--- NOTE | 2024-12-15 16:48 | DI.CT.S_ITS ---
PROCEDURE: CT HEAD/BRAIN WO CON INDICATIONS: feeling confused. TECHNIQUE: Noncontrast 4.5 mm thick angled axial sections acquired from the foramen magnum to the vertex, with coronal and sagittal reformats. For radiation dose reduction, the following was used: automated exposure control, adjustment of mA and/or kV according to patient size. COMPARISON: None. FINDINGS: Image quality: Diagnostic. CSF spaces: Basal cisterns are patent. No extra-axial fluid collections. The ventricles are symmetric in size and shape. Brain: No intracranial bleeds or masses. There is cerebral volume loss for age, with resultant ventricular and sulcal prominence. There are periventricular and deep white matter chronic small vessel ischemic changes. There is intracranial internal carotid artery atherosclerosis. Skull and face: Calvarium and visualized facial bones appear intact, without suspicious lesions. Sinuses: Visualized sinuses and mastoids are clear. IMPRESSION: Unremarkable intracranial study unremarkable intracranial study, without a cause of the patient's presenting history identified. No acute intracranial hemorrhage is seen. To the limits of this noncontrast study, no findings of intracranial masses or mass effect can be seen. Dictated by: Nile Thomson M.D. on 12/15/2024 at 16:24 Approved by: Nile Thomson M.D. on 12/15/2024 at 16:24
== END 2024-12-15 17:51 | disposition home or self-care (01) ==
PROVIDERS: Emergency Provider Emergency Medicine; PCP Family Medicine
DX: R42 Dizziness and giddiness (principal); R07.9 Chest pain, unspecified; R19.7 Diarrhea, unspecified; R11.0 Nausea
CPT/HCPCS: 36415; 70450; 71045; 80053; 81001; 82550; 83690; 83735; 83880; 84484; 85025; 85610; 85730; 93005; 99283; 99284

== ENCOUNTER → 2025-03-03 14:48 | Outpatient (CLI) | payer OTHER, SELFPAY ==
--- NOTE | 2025-03-03 14:50 | DI.RAD.S_ITS ---
PROCEDURE: XR KUB INDICATIONS: Rule out recurrent stones TECHNIQUE: One view of the abdomen acquired. COMPARISON: [facility], CR, XR KUB, 09/08/2024, 14:01. FINDINGS: Stool gas pattern: Moderate colonic stool noted. Stomach small large bowel are normal caliber-no evidence of obstruction No free intraperitoneal or extraperitoneal air. No gross evidence of ascites Soft tissues: Small calcifications overlies the left kidney. No soft tissue masses. Organs: No gross evidence for organomegaly. IMPRESSION: Moderate colonic stool suggesting constipation 2 mm calcification overlying the mid left kidney and 1 mm calcification overlying the inferior left kidney . These could represent stones Dictated by: Jadiel Cazares M.D. on 03/04/2025 at 16:42 Approved by: Jadiel Cazares M.D. on 03/04/2025 at 16:43
[2025-03-03 16:02] LABS: Hemoglobin A1C% w Est Avg Glu 6.7 % (4.0-6.0)
[2025-03-03 16:28] LABS: Alanine Aminotransferase 24 IU/L (<50); Albumin 4.3 g/dL (3.5-5.0); Albumin Globulin Ratio 1.1 (1.0-2.8); Alkaline Phosphatase 84 U/L (38-126); Aspartate Aminotransferase 37 IU/L (17-59); BUN Creatinine Ratio 9.2 (6-22); Bilirubin Total 1.5 mg/dL (0.2-1.3); Blood Urea Nitrogen 17 mg/dL (9-20); Calcium 9.4 mg/dL (8.4-10.2); Carbon Dioxide 26 mmol/L (22-32); Chloride 104 mmol/L (98-107); Estimated Glomerular Filt Rate 37 mL/min (>60); Globulin 3.8 g/dL (1.7-4.1); Glucose 94 mg/dL (70-99); HEMOLYSIS < 15 (0-50); Potassium 3.5 mmol/L (3.4-5.1); Sodium 141 mmol/L (137-145); Total Protein 8.1 g/dL (6.3-8.2)
[2025-03-03 16:38] LABS: Free T4, Direct Thyroxine 1.11 ng/dL (0.78-2.19)
[2025-03-03 16:52] LABS: Thyroid Stimulating Hormone 5.44 uIU/mL (0.47-4.68)
[2025-03-06 08:11] LABS: PSA Free % 35.3 % (.); PSA, Total 6.6 ng/mL (0.0-4.0)
== END ==
PROVIDERS: PCP Family Medicine; Referring Provider Urology; Visit Provider Urology
DX: Z87.442 Personal history of urinary calculi; K59.00 Constipation, unspecified; I12.9 Hypertensive chronic kidney disease with stage 1 through stage 4 chronic kidney disease, or unspecified chronic kidney disease; Z86.39 Personal history of other endocrine, nutritional and metabolic disease; N18.9 Chronic kidney disease, unspecified; E11.9 Type 2 diabetes mellitus without complications; E03.9 Hypothyroidism, unspecified; R97.20 Elevated prostate specific antigen [PSA]; N40.0 Benign prostatic hyperplasia without lower urinary tract symptoms; N40.1 Benign prostatic hyperplasia with lower urinary tract symptoms; Z79.4 Long term (current) use of insulin
CPT/HCPCS: 36415; 74018; 80053; 83036; 84153; 84154; 84439; 84443

== ENCOUNTER → 2025-04-08 14:53 | Outpatient (CLI) | payer OTHER, SELFPAY ==
--- NOTE | 2025-04-08 14:54 | DI.US.S_ITS ---
PROCEDURE: US RENAL COMPLETE INDICATIONS: STAGE 3 CHRONIC KIDNEY DISEASE TECHNIQUE: Real-time scanning was performed of the kidneys and bladder, with image documentation. COMPARISON: [facility], , RENAL COMPLETE, 07/26/2022, 13:58. FINDINGS: Kidneys: Kidneys are normal in size. Right kidney measures 10.6 cm long; left kidney measures 10.7 cm long. Right renal cortical thickness is 1.3 cm; left renal cortical thickness is 1.0 cm. Renal cortical echotexture is normal. Nonobstructing 7 mm calculus is seen at the inferior pole of the left kidney. No hydronephrosis. No suspicious solid mass lesions. Bladder: Pre-void bladder volume is 90 mL. Post-void residual is 0 mL. Pre- void images demonstrate no intraluminal masses or stones. On pre-void images, unilateral right ureteral jets are noted with color Doppler interrogation. (Of note, ureteral jets may not be detectable in up to 25% of cases due to insufficient differences in specific gravity between ureteral and bladder urine). Miscellaneous: No free pelvic fluid. Prostate measures 6.2 x 6.2 x 7.6 cm. IMPRESSION: 1. Nonobstructing 7 mm calculus at the inferior pole of the left kidney. No hydronephrosis. 2. Prostatomegaly. Approved by: Edwin Gonzalez M.D. on 04/09/2025 at 16:21
== END ==
PROVIDERS: PCP Family Medicine; Referring Provider Student in an Organized Health Care Education/Training Program; Visit Provider Student in an Organized Health Care Education/Training Program
DX: N18.32 Chronic kidney disease, stage 3b (principal); N20.0 Calculus of kidney; N40.0 Benign prostatic hyperplasia without lower urinary tract symptoms
CPT/HCPCS: 76770

== ENCOUNTER → 2025-05-05 09:26 | Outpatient (CLI) | payer OTHER, SELFPAY ==
[2025-05-05 10:17] LABS: Hemoglobin A1C% w Est Avg Glu 6.1 % (4.0-6.0)
[2025-05-05 10:55] LABS: Alanine Aminotransferase 27 IU/L (<50); Albumin 4.3 g/dL (3.5-5.0); Albumin Globulin Ratio 1.2 (1.0-2.8); Alkaline Phosphatase 86 U/L (38-126); Blood Urea Nitrogen 21 mg/dL (9-20); Calcium 9.3 mg/dL (8.4-10.2); Carbon Dioxide 26 mmol/L (22-32); Chloride 105 mmol/L (98-107); Estimated Glomerular Filt Rate 35 mL/min (>60); Globulin 3.5 g/dL (1.7-4.1); Glucose 130 mg/dL (70-99); HEMOLYSIS < 15 (0-50); Potassium 3.9 mmol/L (3.4-5.1); Sodium 140 mmol/L (137-145); Total Protein 7.8 g/dL (6.3-8.2)
[2025-05-05 11:23] LABS: TSH w/ Reflex to FT4 4.28 uIU/mL (0.47-4.68)
== END ==
PROVIDERS: PCP Family Medicine; Referring Provider Family Medicine; Visit Provider Family Medicine
DX: E21.3 Hyperparathyroidism, unspecified (principal); E11.22 Type 2 diabetes mellitus with diabetic chronic kidney disease; E11.69 Type 2 diabetes mellitus with other specified complication; N18.9 Chronic kidney disease, unspecified; E78.5 Hyperlipidemia, unspecified
CPT/HCPCS: 36415; 80053; 83036; 84443

== ENCOUNTER → 2025-06-29 12:02 | Outpatient (CLI) | payer OTHER, SELFPAY ==
[2025-06-29 13:41] LABS: Add Manual Diff / Slide Review NO; Hematocrit 43.5 % (41-53); Hemoglobin 15.0 g/dL (13.5-17.5); Lymphocytes Absolute Auto 2100 /uL (1100-4500); Mean Corpuscular HGB Conc 34.5 % (30-36); Mean Corpuscular Hemoglobin 30.4 PG (26-34); Mean Corpuscular Volume 88.0 fL (80-100); Platelet Count 215 X10^3/uL (150-400)
[2025-06-29 14:13] LABS: Alanine Aminotransferase 26 IU/L (<50); Albumin 4.1 g/dL (3.5-5.0); Albumin Globulin Ratio 1.3 (1.0-2.8); Alkaline Phosphatase 84 U/L (38-126); Blood Urea Nitrogen 21 mg/dL (9-20); Calcium 9.3 mg/dL (8.4-10.2); Carbon Dioxide 24 mmol/L (22-32); Chloride 102 mmol/L (98-107); Cholesterol 126 mg/dL (140-199); Estimated Glomerular Filt Rate 38 mL/min (>60); Globulin 3.2 g/dL (1.7-4.1); Glucose 279 mg/dL (70-99); HDL Cholesterol 26 mg/dL (40-60); HEMOLYSIS < 15 (0-50); Potassium 4.1 mmol/L (3.4-5.1); Sodium 137 mmol/L (137-145); Total Protein 7.3 g/dL (6.3-8.2); Triglycerides 314 mg/dL (35-150)
[2025-06-29 14:43] LABS: Prostate Specific Antigen 5.11 ng/mL (0.10-4.00)
[2025-06-29 15:00] LABS: Free T4, Direct Thyroxine 1.39 ng/dL (0.78-2.19)
[2025-06-29 15:14] LABS: Thyroid Stimulating Hormone 1.16 uIU/mL (0.47-4.68)
== END ==
PROVIDERS: PCP Family Medicine; Referring Provider Family Medicine; Visit Provider Family Medicine
DX: R97.20 Elevated prostate specific antigen [PSA] (principal); Z87.442 Personal history of urinary calculi; N18.32 Chronic kidney disease, stage 3b; I10 Essential (primary) hypertension; E03.9 Hypothyroidism, unspecified
CPT/HCPCS: 36415; 80053; 80061; 84153; 84439; 84443; 85025

== ENCOUNTER → 2025-07-07 14:14 | Outpatient (CLI) | payer OTHER, SELFPAY ==
[2025-07-07 15:19] LABS: Hemoglobin A1C% w Est Avg Glu 6.8 % (4.0-6.0)
[2025-07-07 15:57] LABS: Microalbumi Creatinin Ratio Ur 15.0 ug/mg CR (<30)
[2025-07-07 16:02] LABS: Culture Indicated Urine Cult Not Indicated
== END ==
PROVIDERS: PCP Family Medicine; Referring Provider Family Medicine; Visit Provider Family Medicine
DX: N40.1 Benign prostatic hyperplasia with lower urinary tract symptoms (principal); R39.12 Poor urinary stream; N18.32 Chronic kidney disease, stage 3b
CPT/HCPCS: 36415; 81015; 82043; 82570; 83036

== ENCOUNTER → 2025-09-22 14:08 | Outpatient (CLI) | payer OTHER, SELFPAY | PROVIDERS: PCP Family Medicine; Referring Provider Urology; Visit Provider Urology | DX: R97.20 Elevated prostate specific antigen [PSA] (principal) | CPT/HCPCS: 36415; 84153; 84154 ==